=== PATIENT | male | born 1960 | race African-American/Black ===

== ENCOUNTER 2018-08-02 11:38 | Inpatient (IN) ==
[2018-08-02] MEDS ORDERED: SODIUM CHLORIDE 0.9% 1,000 ML IV SCH (12:30)
[2018-08-02 13:59] LABS: Basophils # 0.1 10*3/uL (0.0-0.2); Basophils % 0.7 % (0.0-0.8); Eosinophils # 0.2 10*3/uL (0.0-0.87); Eosinophils % 2.4 % (0.00-10.9); Hematocrit 37.3 VOL% (42.0-52.0); Hemoglobin 12.3 GM/DL (14.0-18.0); Immature Granulocytes % 0.1 %; Immature Granulocytes Absolute 0.01 #; Lymphocytes # 1.7 10*3/uL (1.4-4.0); Lymphocytes % 23.7 % (21.2-54.2); Mean Corpuscular Hemoglobin 28 PG (27-34); Mean Corpuscular Volume 84.8 FL (87-102); Mean Platelet Volume 10.2 FL (9.6-12.0); Monocytes # 0.9 10*3/uL (0.11-0.8); Monocytes % 13.2 % (1.7-12.7); Neutrophils # 4.2 10*3/uL (1.4-7.4); Neutrophils % 59.9 % (38.7-73.9); Platelet Count 220 T/CUMM (130-400); Red Cell Distribution Width 14.9 % (9.3-17.3)
[2018-08-02 14:26] LABS: Albumin 3.3 G/DL (3.4-5.0); Bilirubin,Total 0.5 MG/DL (0.2-1.0); Calcium 8.7 MG/DL (8.5-10.1); Osmolality,Calculated 279.5 MOS/KG (273-304); Potassium 3.9 MMOL/L (3.5-5.1); Total Protein 7.1 G/DL (6.4-8.3)
[2018-08-02] MEDS: CHLORHEXIDINE 4% SOLN 118 ML BOTTLE TOP SCH ×2 (16:00→22:09)
[2018-08-02] MEDS: METOPROLOL TARTRATE 100 MG TABLET PO SCH (22:09)
[2018-08-02] MEDS: CHLORHEXIDINE 0.12% ORAL RINSE 60 ML BOTTLE SWISH/SPIT SCH (22:09)
[2018-08-03] MEDS ORDERED: TISSUE ADHESIVE 1 EACH APPLICATOR TOP ONE (04:40)
[2018-08-03] MEDS ORDERED: VANCOMYCIN 1,000 MG VIAL ONE (04:40)
[2018-08-03] MEDS ORDERED: PAPAVERINE 60 MG/2 ML VIAL ONE (04:40)
[2018-08-03] MEDS ORDERED: CEFUROXIME INJ 1,500 MG in SYRINGE 1 EACH IV ONE (05:00)
[2018-08-03] MEDS: CHLORHEXIDINE 4% SOLN 118 ML BOTTLE TOP SCH ×2 (05:20→08:12)
[2018-08-03] MEDS: METOPROLOL TARTRATE 100 MG TABLET PO SCH (05:40)
[2018-08-03] MEDS ORDERED: PANTOPRAZOLE 40 MG TABLET PO ONE (06:30)
[2018-08-03] MEDS ORDERED: DIAZEPAM 5 MG TABLET PO ONE (06:30)
[2018-08-03] MEDS ORDERED: NITROPRUSSIDE 50 MG/2 ML VIAL ONE (07:00)
[2018-08-03] MEDS ORDERED: PHENYLEPHRINE DRIP 40 MG/250 ML PREMIX IV ONE (07:22)
[2018-08-03] MEDS ORDERED: SODIUM BICARBONATE 50 MEQ/50 ML SYRINGE IV ONE ×6 (07:22→13:07)
[2018-08-03] MEDS ORDERED: CALCIUM CHLORIDE 1,000 MG/10 ML SYRINGE IV ONE (07:22)
[2018-08-03] MEDS ORDERED: EPINEPHrine 1 MG/10 ML SYRINGE ONE (07:23)
[2018-08-03] MEDS ORDERED: POTASSIUM CHLORIDE RIDER 100 ML IV ONE (07:23)
[2018-08-03] MEDS ORDERED: ALBUMIN 5% 12.5 GM/250 ML VIAL IV ONE ×3 (07:23→12:12)
[2018-08-03 07:43] LABS: ABG Base Excess -0.7 MMOL/L (-2.5-2.5); ABG HCO3 23.8 MMOL/L (20-26); ABG PCO2 36.7 MM HG (35-48); ABG PH 7.413 (7.35-7.45); ABG TCO2 20.8 MMOL/L (23-27); Glucose Heart Surgery 88 MG/DL (74-106); Hemoglobin Heart Surgery 11.7 G/DL (14.0-18.0); Ionized Calcium Arterial 1.14 MMOL/L (1.21-1.46); PCO2 Patient Temp Arterial 36.7 MMHG; PH Patient Temp Arterial 7.413; Patient Temperature 37 CELCIUS; Potassium Heart/CVR 3.8 MMOL/L (3.5-5.1); Sodium Heart/CVR 136 MMOL/L (135-145)
[2018-08-03] MEDS: CHLORHEXIDINE 0.12% ORAL RINSE 60 ML BOTTLE SWISH/SPIT SCH ×2 (08:12→21:43)
[2018-08-03 08:58] LABS: Apearance,Urine CLEAR (Clear); Bilirubin,Urine Negative (Negative); Blood, Urine Negative (Negative); Glucose,Urine (UA) Negative (Negative); Ketones,Urine Negative (Negative); Nitrite,Urine Negative (Negative); Protein,Urine 30 MG/DL; RBC,Urine 1 /HPF (0-4); Transitional Epi Cells,Urine Occasional /HPF (<1); Urine Color Yellow (Yellow); Urine Specific Gravity 1.016 (1.001-1.035); WBC,Urine 9 /HPF (0-6)
[2018-08-03 09:06] LABS: Hematocrit Heart Surgery 42.1 PERCENT (42-52); Hemoglobin Heart Surgery 13.7 G/DL (14.0-18.0); PCO2 Patient Temp Venous 41.7 MM HG; PH Patient Temp Venous 7.292; PO2 Patient Temp Venous 50.4 MM HG; VBG Base Excess -6.4 MEQ/L (0-4); VBG Oxygen Saturation 83.8 %; VBG PH 7.264; VBG PO2 57.7 MMHG (17-40)
[2018-08-03 09:30] LABS: Hematocrit Heart Surgery 38.7 PERCENT (42-52); Hemoglobin Heart Surgery 12.6 G/DL (14.0-18.0); PCO2 Patient Temp Venous 34.3 MM HG; PH Patient Temp Venous 7.373; PO2 Patient Temp Venous 41.7 MM HG; Potassium Heart/CVR 3.7 MMOL/L (3.5-5.1); VBG Base Excess -4.8 MEQ/L (0-4); VBG HCO3 20.3 MEQ/L (24-28); VBG Oxygen Saturation 84.5 %; VBG PCO2 41.6 MMHG (41-51); VBG PH 7.316; VBG PO2 54.8 MMHG (17-40)
[2018-08-03] MEDS ORDERED: ALBUMIN 25% 25 GM/100 ML VIAL IV ONE (10:00)
[2018-08-03] MEDS ORDERED: MAGNESIUM SULFATE 10 GM/20 ML VIAL IV ONE (10:00)
[2018-08-03] MEDS ORDERED: PROTAMINE SULFATE 250 MG/25 ML VIAL IV ONE (10:00)
[2018-08-03] MEDS ORDERED: MANNITOL 12.5 GM/50 ML VIAL IV ONE (10:01)
[2018-08-03] MEDS ORDERED: HEPARIN 10,000 UNIT/10 ML VIAL ONE (10:01)
[2018-08-03] MEDS ORDERED: methylPREDNISolone SOD SUC 1,000 MG/8 ML VIAL ONE (10:01)
[2018-08-03] MEDS ORDERED: FUROSEMIDE 20 MG/2 ML VIAL ONE (10:01)
[2018-08-03] MEDS ORDERED: DEXTROSE 5% KCL 20 MEQ 20 MEQ/1,000 ML BAG IV ONE (10:01)
[2018-08-03] MEDS ORDERED: PROTAMINE SULFATE 50 MG/5 ML VIAL IV ONE (10:01)
[2018-08-03 10:17] LABS: ABG Base Excess -4.7 MMOL/L (-2.5-2.5); ABG HCO3 22.7 MMOL/L (20-26); ABG Oxygen Saturation 95.8 % (95-100); ABG PCO2 50.2 MM HG (35-48); ABG PH 7.273 (7.35-7.45); ABG PO2 92.2 MM HG (80-95); ABG TCO2 24.2 MMOL/L (23-27); Glucose Heart Surgery 148 MG/DL (74-106); Hemoglobin Heart Surgery 16.9 G/DL (14.0-18.0); Ionized Calcium Arterial 0.98 MMOL/L (1.21-1.46); PCO2 Patient Temp Arterial 50.2 MMHG; PH Patient Temp Arterial 7.273; PO2 Patient Temp Arterial 92.2 MM HG; Patient Temperature 37 CELCIUS; Potassium Heart/CVR 3.4 MMOL/L (3.5-5.1); Sodium Heart/CVR 135 MMOL/L (135-145)
[2018-08-03] MEDS ORDERED: ALBUTEROL 2.5 MG/3 ML NEB RESP TX ONE (10:27)
[2018-08-03 10:34] LABS: ABG Oxygen Saturation 96.9 % (95-100); ABG PCO2 57.9 MM HG (35-48); ABG PH 7.302 (7.35-7.45); ABG PO2 102.2 MM HG (80-95); ABG TCO2 29.8 MMOL/L (23-27); Glucose Heart Surgery 143 MG/DL (74-106); Hemoglobin Heart Surgery 17.6 G/DL (14.0-18.0); Ionized Calcium Arterial 1.08 MMOL/L (1.21-1.46); PCO2 Patient Temp Arterial 57.9 MMHG; PH Patient Temp Arterial 7.302; PO2 Patient Temp Arterial 102.2 MM HG; Patient Temperature 37 CELCIUS; Potassium Heart/CVR 3.3 MMOL/L (3.5-5.1); Sodium Heart/CVR 139 MMOL/L (135-145)
[2018-08-03] MEDS ORDERED: diphenhydrAMINE 50 MG/1 ML VIAL ONE (10:40)
[2018-08-03 10:55] LABS: ABG Base Excess -5.9 MMOL/L (-2.5-2.5); ABG HCO3 19.7 MMOL/L (20-26); ABG Oxygen Saturation 94.9 % (95-100); ABG PCO2 65.7 MM HG (35-48); ABG PO2 96.5 MM HG (80-95); ABG TCO2 21.6 MMOL/L (23-27); Glucose Heart Surgery 147 MG/DL (74-106); Hematocrit Heart Surgery 54.2 PERCENT (42-52); Hemoglobin Heart Surgery 17.7 G/DL (14.0-18.0); Ionized Calcium Arterial 1.08 MMOL/L (1.21-1.46); PCO2 Patient Temp Arterial 65.7 MMHG; PH Patient Temp Arterial 7.192; PO2 Patient Temp Arterial 96.5 MM HG; Patient Temperature 37 CELCIUS; Potassium Heart/CVR 3.2 MMOL/L (3.5-5.1); Sodium Heart/CVR 139 MMOL/L (135-145)
[2018-08-03 11:02] LABS: ABG PH 7.192 (7.35-7.45)
[2018-08-03] MEDS ORDERED: EPINEPHrine 1 MG/ML VIAL ONE (11:12)
[2018-08-03] MEDS ORDERED: CALCIUM CHLORIDE 1,000 MG/10 ML SYRINGE IV PRN (11:52)
[2018-08-03] MEDS ORDERED: ONDANSETRON 4 MG/2 ML VIAL IV PRN (11:52)
[2018-08-03] MEDS ORDERED: ACETAMINOPHEN 650 MG SUPP RECTAL PRN (11:52)
[2018-08-03] MEDS ORDERED: INSULIN REGULAR 100 UNIT/ML IV PRN (11:52)
[2018-08-03] MEDS ORDERED: DEXTROSE 50% 25 GM/50 ML SYRINGE IV PRN ×2 (11:52)
[2018-08-03] MEDS ORDERED: MIDAZOLAM 2 MG/2 ML VIAL IV PRN (11:52)
[2018-08-03] MEDS ORDERED: POTASSIUM CHLORIDE RIDER 10 MEQ in PREMIX 1 EACH IV PRN (11:52)
[2018-08-03] MEDS ORDERED: MAGNESIUM SULF RIDER 2 GM in PREMIX 1 EACH IV PRN (11:52)
[2018-08-03] MEDS ORDERED: SODIUM CHLORIDE 0.9% 250 ML IV PRN (11:52)
[2018-08-03] MEDS ORDERED: MAGNESIUM SULF RIDER 4 GM in PREMIX 1 EACH IV PRN (11:52)
[2018-08-03] MEDS ORDERED: CHLORHEXIDINE 4% SOLN 118 ML BOTTLE TOP PRN (11:52)
[2018-08-03] MEDS ORDERED: SODIUM BICARB INJ 150 MEQ in STERILE WATER INJ 1,000 ML IV SCH (12:00)
[2018-08-03] MEDS ORDERED: SODIUM CHLORIDE 0.45% 1,000 ML IV SCH ×2 (12:00)
[2018-08-03] MEDS ORDERED: PHENYLEPHRINE DRIP 40 MG/250 ML PREMIX IV PRN (12:04)
[2018-08-03] MEDS ORDERED: MIDAZOLAM 10 MG/2 ML VIAL ONE (12:09)
[2018-08-03] MEDS ORDERED: SUFentanil 250 MCG/5 ML AMP ONE (12:09)
[2018-08-03] MEDS ORDERED: ETOMIDATE 40 MG/20 ML VIAL IV ONE (12:10)
[2018-08-03] MEDS ORDERED: PHENYLEPHRINE 10 MG/1 ML VIAL IV ONE (12:10)
[2018-08-03] MEDS ORDERED: SODIUM CHLORIDE 0.9% 750 ML IV ONE (12:10)
[2018-08-03] MEDS ORDERED: SODIUM CHLORIDE 0.9% 1,000 ML IV ONE (12:10)
[2018-08-03] MEDS ORDERED: HEPARIN/NACL 0.9% 2 UNITS/ML 500 ML IV ONE (12:11)
[2018-08-03] MEDS ORDERED: AMIODARONE 150 MG/3 ML VIAL ONE (12:11)
[2018-08-03] MEDS ORDERED: CALCIUM CHLORIDE 1,000 MG/10 ML VIAL IV ONE (12:11)
[2018-08-03] MEDS ORDERED: NITROGLYCERIN DRIP 50 MG/250 ML BOTTLE IV ONE (12:12)
[2018-08-03] MEDS ORDERED: AMINOCAPROIC ACID 5,000 MG/20 ML VIAL IV ONE (12:12)
[2018-08-03] MEDS ORDERED: NOREPINEPHRINE 4 MG/4 ML VIAL IV ONE (12:30)
[2018-08-03 12:40] LABS: Basophils # 0.1 10*3/uL (0.0-0.2); Basophils % 0.2 % (0.0-0.8); Eosinophils # 0.1 10*3/uL (0.0-0.87); Eosinophils % 0.4 % (0.00-10.9); Hematocrit 47.3 VOL% (42.0-52.0); Immature Granulocytes % 4.5 %; Immature Granulocytes Absolute 1.31 #; Lymphocytes # 3.9 10*3/uL (1.4-4.0); Lymphocytes % 13.5 % (21.2-54.2); Mean Corpuscular HGB Conc 32.3 GM/DL (32-36); Mean Corpuscular Hemoglobin 28 PG (27-34); Mean Corpuscular Volume 86.9 FL (87-102); Mean Platelet Volume 10.5 FL (9.6-12.0); Monocytes # 1.1 10*3/uL (0.11-0.8); Monocytes % 3.9 % (1.7-12.7); Neutrophils # 22.6 10*3/uL (1.4-7.4); Neutrophils % 77.5 % (38.7-73.9); Red Cell Distribution Width 14.9 % (9.3-17.3)
[2018-08-03 12:43] LABS: ABG Base Excess -1.3 MMOL/L (-2.5-2.5); ABG HCO3 23.2 MMOL/L (20-26); ABG Oxygen Saturation 93.5 % (95-100); ABG PH 7.211 (7.35-7.45); ABG PO2 84.8 MM HG (80-95); ABG TCO2 26.2 MMOL/L (23-27); Glucose Heart Surgery 114 MG/DL (74-106); Hematocrit Heart Surgery 48.9 PERCENT (42-52); Potassium Heart/CVR 3.3 MMOL/L (3.5-5.1)
[2018-08-03 12:46] LABS: Hemoglobin 15.3 GM/DL (14.0-18.0); Red Blood Count 5.44 MC/CUMM (3.8-5.5); White Blood Count 29.2 T/CUMM (4-12)
[2018-08-03 12:47] LABS: ABG PCO2 75.1 MM HG (35-48); Platelet Count 222 T/CUMM (130-400)
[2018-08-03] MEDS: ALBUMIN 5% 12.5 GM in PREMIX 1 EACH IV PRN ×2 (13:02→13:18)
[2018-08-03 13:04] LABS: Calcium 7.2 MG/DL (8.5-10.1); Osmolality,Calculated 296.3 MOS/KG (273-304); Potassium 3.4 MMOL/L (3.5-5.1)
[2018-08-03 13:15] LABS: Band Neutrophils 6 % (0-10); Eosinophils 2 % (0-10); Lymphocytes 14 % (20-55); Metamyelocytes 1 %; Myelocytes 1 %; Platelet Estimate Adequate; Segmented Neutrophils 71 % (50-85); Total Cells Counted 100
[2018-08-03] MEDS: NOREPINEPHRINE 8 MG in SODIUM CHLORIDE 0.9% 242 ML IV PRN ×2 (13:17→21:56)
[2018-08-03 13:30] LABS: ABG Base Excess 0.6 MMOL/L (-2.5-2.5); ABG HCO3 24.9 MMOL/L (20-26); ABG Oxygen Saturation 95.8 % (95-100); ABG PCO2 55.3 MM HG (35-48); ABG PH 7.317 (7.35-7.45); ABG PO2 87.5 MM HG (80-95); ABG TCO2 24.4 MMOL/L (23-27); Glucose Heart Surgery 107 MG/DL (74-106); Hematocrit Heart Surgery 46.4 PERCENT (42-52); Hemoglobin Heart Surgery 15.1 G/DL (14.0-18.0); Potassium Heart/CVR 3.4 MMOL/L (3.5-5.1)
[2018-08-03 13:34] LABS: Lactic Acid 6.5 MMOL/L (0.4-2.0)
[2018-08-03] MEDS: POTASSIUM CHLORIDE RIDER 20 MEQ in PREMIX 1 EACH IV PRN ×2 (13:55→14:21)
[2018-08-03] MEDS: DEXMEDETOMIDINE 200 MCG in SODIUM CHLORIDE 0.9% 48 ML IV PRN ×2 (14:55→21:41)
[2018-08-03 15:06] LABS: ABG Base Excess 1.7 MMOL/L (-2.5-2.5); ABG HCO3 25.6 MMOL/L (20-26); ABG Oxygen Saturation 89.1 % (95-100); ABG PCO2 47.8 MM HG (35-48); ABG PH 7.372 (7.35-7.45); ABG PO2 59.4 MM HG (80-95); ABG TCO2 23.9 MMOL/L (23-27); Glucose Heart Surgery 110 MG/DL (74-106); Hematocrit Heart Surgery 44.8 PERCENT (42-52); Hemoglobin Heart Surgery 14.6 G/DL (14.0-18.0); Potassium Heart/CVR 3.7 MMOL/L (3.5-5.1)
[2018-08-03] MEDS: ALBUTEROL/IPRATROPIUM 3 ML NEB RESP TX SCH ×2 (15:28→20:40)
[2018-08-03 15:45] LABS: INR 1.8; PT Patient Result 19.4 SECS
[2018-08-03 16:01] LABS: Partial Thromboplastin Time > 320.0 SECS (0-40)
[2018-08-03 16:29] LABS: ABG Base Excess 2.2 MMOL/L (-2.5-2.5); ABG HCO3 26.2 MMOL/L (20-26); ABG Oxygen Saturation 91.8 % (95-100); ABG PCO2 40.4 MM HG (35-48); ABG PH 7.427 (7.35-7.45); ABG PO2 62.6 MM HG (80-95); ABG TCO2 22.7 MMOL/L (23-27); Glucose Heart Surgery 122 MG/DL (74-106); Hematocrit Heart Surgery 44.8 PERCENT (42-52); Hemoglobin Heart Surgery 14.6 G/DL (14.0-18.0); Potassium Heart/CVR 3.7 MMOL/L (3.5-5.1)
[2018-08-03] MEDS ORDERED: CALCIUM GLUCONATE 1,000 MG in SODIUM CHLORIDE 0.9% 100 ML IV ONE (16:30)
[2018-08-03 17:06] LABS: Lactic Acid 8.2 MMOL/L (0.4-2.0)
[2018-08-03 17:42] LABS: Albumin 2.9 G/DL (3.4-5.0); Calcium 7.5 MG/DL (8.5-10.1); Osmolality,Calculated 294.6 MOS/KG (273-304); Total Protein 4.6 G/DL (6.4-8.3)
[2018-08-03] MEDS: SODIUM BICARB INJ 50 MEQ in SODIUM CHLORIDE 0.45% 1,000 ML IV SCH (17:57)
[2018-08-03] MEDS ORDERED: FUROSEMIDE 100 MG/10 ML VIAL IV ONE (18:00)
[2018-08-03 21:11] LABS: ABG Base Excess 2.1 MMOL/L (-2.5-2.5); ABG HCO3 26.3 MMOL/L (20-26); ABG PCO2 39.7 MM HG (35-48); ABG PH 7.439 (7.35-7.45); ABG PO2 91.4 MM HG (80-95); ABG TCO2 27.5 MMOL/L (23-27); Glucose Heart Surgery 137 MG/DL (74-106); Hemoglobin Heart Surgery 15.7 G/DL (14.0-18.0); Potassium Heart/CVR 4.1 MMOL/L (3.5-5.1)
[2018-08-03] MEDS: CEFUROXIME INJ 1,500 MG in SYRINGE 1 EACH IV SCH (21:32)
[2018-08-03 23:18] LABS: Lactic Acid 4.8 MMOL/L (0.4-2.0)
[2018-08-04] MEDS ORDERED: DOBUTamine 500 MG/250 ML PREMIX IV PRN (02:01)
[2018-08-04] MEDS ORDERED: DOBUTamine 500 MG/250 ML PREMIX IV ONE (02:06)
[2018-08-04] MEDS: SODIUM BICARB INJ 50 MEQ in SODIUM CHLORIDE 0.45% 1,000 ML IV SCH ×2 (02:35→14:10)
[2018-08-04] MEDS: DEXMEDETOMIDINE 200 MCG in SODIUM CHLORIDE 0.9% 48 ML IV PRN ×2 (02:37→07:31)
[2018-08-04] MEDS: ALBUTEROL/IPRATROPIUM 3 ML NEB RESP TX SCH ×7 (04:06→22:32)
[2018-08-04] MEDS: ALBUMIN 5% 12.5 GM in PREMIX 1 EACH IV PRN ×4 (04:06→11:28)
[2018-08-04 04:33] LABS: ABG Base Excess 1.5 MMOL/L (-2.5-2.5); ABG HCO3 25.6 MMOL/L (20-26); ABG PCO2 38.8 MM HG (35-48); ABG PH 7.438 (7.35-7.45); ABG PO2 94.4 MM HG (80-95); ABG TCO2 26.8 MMOL/L (23-27); Glucose Heart Surgery 163 MG/DL (74-106); Hemoglobin Heart Surgery 14.1 G/DL (14.0-18.0); Potassium Heart/CVR 4.7 MMOL/L (3.5-5.1)
[2018-08-04 04:42] LABS: Basophils # 0.1 10*3/uL (0.0-0.2); Basophils % 0.2 % (0.0-0.8); Hematocrit 39.6 VOL% (42.0-52.0); Immature Granulocytes % 3.2 %; Immature Granulocytes Absolute 1.02 #; Lymphocytes # 1.4 10*3/uL (1.4-4.0); Lymphocytes % 4.4 % (21.2-54.2); Mean Corpuscular HGB Conc 33.6 GM/DL (32-36); Mean Corpuscular Hemoglobin 28 PG (27-34); Mean Corpuscular Volume 84.1 FL (87-102); Mean Platelet Volume 11.2 FL (9.6-12.0); Monocytes # 1.5 10*3/uL (0.11-0.8); Monocytes % 4.6 % (1.7-12.7); Neutrophils # 27.9 10*3/uL (1.4-7.4); Neutrophils % 87.6 % (38.7-73.9); Red Blood Count 4.71 MC/CUMM (3.8-5.5); Red Cell Distribution Width 14.9 % (9.3-17.3); White Blood Count 31.9 T/CUMM (4-12)
[2018-08-04 04:58] LABS: Hemoglobin 13.3 GM/DL (14.0-18.0); Platelet Count 148 T/CUMM (130-400)
[2018-08-04 05:04] LABS: INR 1.3; PT Patient Result 13.9 SECS; Partial Thromboplastin Time 29.2 SECS (0-40)
[2018-08-04 05:09] LABS: Calcium 7.1 MG/DL (8.5-10.1); Osmolality,Calculated 297.8 MOS/KG (273-304); Potassium 4.8 MMOL/L (3.5-5.1)
[2018-08-04 05:15] LABS: Band Neutrophils 5 % (0-10); Hypochromasia Slight; Lymphocytes 5 % (20-55); Platelet Estimate Adequate; Segmented Neutrophils 88 % (50-85); Total Cells Counted 100
[2018-08-04] MEDS ORDERED: FUROSEMIDE 100 MG/10 ML VIAL IV ONE (06:00)
[2018-08-04] MEDS: INSULIN REGULAR 100 UNIT/ML SUBCUT SCH ×5 (07:34→21:36)
[2018-08-04] MEDS ORDERED: ASPIRIN EC 325 MG TABLET PO SCH (09:00)
[2018-08-04] MEDS: CEFUROXIME INJ 1,500 MG in SYRINGE 1 EACH IV SCH ×2 (09:23→19:50)
[2018-08-04] MEDS: PANTOPRAZOLE 40 MG VIAL IV SCH (09:23)
[2018-08-04] MEDS: FUROSEMIDE 40 MG TABLET PO SCH (09:23)
[2018-08-04] MEDS: ASPIRIN 325 MG TABLET PO SCH (09:23)
[2018-08-04] MEDS: CHLORHEXIDINE 0.12% ORAL RINSE 60 ML BOTTLE SWISH/SPIT SCH ×2 (09:28→21:01)
[2018-08-04] MEDS ORDERED: ALBUMIN 25% 25 GM/100 ML VIAL IV ONE (09:54)
[2018-08-04] MEDS ORDERED: SODIUM BICARBONATE 50 MEQ/50 ML SYRINGE IV ONE (09:54)
[2018-08-04] MEDS ORDERED: MANNITOL 12.5 GM/50 ML VIAL IV ONE (09:54)
[2018-08-04 11:47] LABS: ABG Base Excess 2.1 MMOL/L (-2.5-2.5); ABG HCO3 26.3 MMOL/L (20-26); ABG Oxygen Saturation 96.5 % (95-100); ABG PCO2 43.7 MM HG (35-48); ABG PH 7.402 (7.35-7.45); ABG PO2 86.5 MM HG (80-95); ABG TCO2 24.5 MMOL/L (23-27); Glucose Heart Surgery 139 MG/DL (74-106); Hematocrit Heart Surgery 33.1 PERCENT (42-52); Hemoglobin Heart Surgery 10.7 G/DL (14.0-18.0); Potassium Heart/CVR 4.3 MMOL/L (3.5-5.1)
[2018-08-04] MEDS ORDERED: CALCIUM GLUCONATE 1,000 MG in SODIUM CHLORIDE 0.9% 100 ML IV ONE (13:00)
[2018-08-04] MEDS: MORPHINE 4 MG/1 ML VIAL IV PRN ×2 (13:58→19:53)
[2018-08-04] MEDS ORDERED: FUROSEMIDE 40 MG/4 ML VIAL IV ONE (14:00)
[2018-08-04] MEDS: MORPHINE 10 MG/1 ML VIAL IV PRN (15:31)
[2018-08-04] MEDS: ATORVASTATIN 40 MG TABLET PO SCH (21:00)
[2018-08-05] MEDS: INSULIN REGULAR 100 UNIT/ML SUBCUT SCH ×4 (01:58→21:00)
[2018-08-05] MEDS: ALBUTEROL/IPRATROPIUM 3 ML NEB RESP TX SCH ×6 (02:31→22:38)
[2018-08-05] MEDS: MORPHINE 4 MG/1 ML VIAL IV PRN ×2 (02:37→10:53)
[2018-08-05 04:38] LABS: Basophils % 0.1 % (0.0-0.8); Hematocrit 28.3 VOL% (42.0-52.0); Hemoglobin 9.4 GM/DL (14.0-18.0); Immature Granulocytes % 3.3 %; Lymphocytes # 0.7 10*3/uL (1.4-4.0); Lymphocytes % 2.5 % (21.2-54.2); Mean Corpuscular HGB Conc 33.2 GM/DL (32-36); Mean Corpuscular Hemoglobin 29 PG (27-34); Mean Corpuscular Volume 85.8 FL (87-102); Mean Platelet Volume 10.9 FL (9.6-12.0); Monocytes # 1.5 10*3/uL (0.11-0.8); Monocytes % 5.6 % (1.7-12.7); Neutrophils # 24.3 10*3/uL (1.4-7.4); Neutrophils % 88.5 % (38.7-73.9); White Blood Count 27.4 T/CUMM (4-12)
[2018-08-05 04:42] LABS: Calcium 7.2 MG/DL (8.5-10.1); Osmolality,Calculated 291.5 MOS/KG (273-304); Potassium 4.3 MMOL/L (3.5-5.1)
[2018-08-05 04:46] LABS: Platelet Count 95 T/CUMM (130-400)
[2018-08-05 05:34] LABS: Band Neutrophils 4 % (0-10); Hypochromasia 1+; Lymphocytes 2 % (20-55); Ovalocytes Slight; Platelet Estimate Decreased; Segmented Neutrophils 90 % (50-85); Total Cells Counted 100
[2018-08-05] MEDS: ASPIRIN 325 MG TABLET PO SCH (09:01)
[2018-08-05] MEDS: FUROSEMIDE 40 MG TABLET PO SCH (09:01)
[2018-08-05] MEDS: PANTOPRAZOLE 40 MG VIAL IV SCH (09:02)
[2018-08-05] MEDS: CHLORHEXIDINE 0.12% ORAL RINSE 60 ML BOTTLE SWISH/SPIT SCH (09:02)
[2018-08-05] MEDS ORDERED: FUROSEMIDE 40 MG/4 ML VIAL IV ONE (09:11)
[2018-08-05] MEDS: CARVEDILOL 3.125 MG TABLET PO SCH ×2 (11:23→21:28)
[2018-08-05] MEDS ORDERED: ATORVASTATIN 40 MG TABLET PO SCH (21:00)
[2018-08-05] MEDS: ATORVASTATIN 40 MG TABLET PO SCH (21:28)
[2018-08-06] MEDS: INSULIN REGULAR 100 UNIT/ML SUBCUT SCH ×8 (02:00→21:05)
[2018-08-06] MEDS: ALBUTEROL/IPRATROPIUM 3 ML NEB RESP TX SCH ×6 (02:12→23:09)
[2018-08-06 04:46] LABS: Basophils % 0.1 % (0.0-0.8); Hematocrit 25.3 VOL% (42.0-52.0); Hemoglobin 8.4 GM/DL (14.0-18.0); Immature Granulocytes % 2.4 %; Immature Granulocytes Absolute 0.44 #; Lymphocytes # 0.6 10*3/uL (1.4-4.0); Lymphocytes % 3.1 % (21.2-54.2); Mean Corpuscular HGB Conc 33.2 GM/DL (32-36); Mean Corpuscular Hemoglobin 28 PG (27-34); Mean Corpuscular Volume 85.5 FL (87-102); Mean Platelet Volume 11.9 FL (9.6-12.0); Monocytes % 5.5 % (1.7-12.7); Neutrophils # 16.2 10*3/uL (1.4-7.4); Neutrophils % 88.9 % (38.7-73.9); Red Blood Count 2.96 MC/CUMM (3.8-5.5); Red Cell Distribution Width 14.8 % (9.3-17.3)
[2018-08-06 05:01] LABS: Calcium 7.5 MG/DL (8.5-10.1); Osmolality,Calculated 290.8 MOS/KG (273-304); Potassium 4.1 MMOL/L (3.5-5.1)
[2018-08-06 05:11] LABS: Platelet Count 77 T/CUMM (130-400); White Blood Count 18.2 T/CUMM (4-12)
[2018-08-06 05:45] LABS: Band Neutrophils 3 % (0-10); Lymphocytes 5 % (20-55); Segmented Neutrophils 86 % (50-85); Total Cells Counted 100
[2018-08-06 05:46] LABS: Hypochromasia 3+; Platelet Estimate Decreased
[2018-08-06] MEDS ORDERED: hydrALAZINE 20 MG/1 ML VIAL IV ONE ×3 (06:00→19:55)
[2018-08-06] MEDS: ASPIRIN 325 MG TABLET PO SCH (08:52)
[2018-08-06] MEDS: FERROUS SULFATE 325 MG TABLET PO SCH (08:52)
[2018-08-06] MEDS: PANTOPRAZOLE 40 MG VIAL IV SCH (08:53)
[2018-08-06] MEDS: CARVEDILOL 3.125 MG TABLET PO SCH (08:53)
[2018-08-06] MEDS ORDERED: hydrALAZINE 25 MG TABLET PO SCH (09:00)
[2018-08-06] MEDS ORDERED: SODIUM CHLORIDE 0.9% 1,000 ML IV PRN (14:27)
[2018-08-06] MEDS: FUROSEMIDE 40 MG TABLET PO SCH (14:28)
[2018-08-06] MEDS: CARVEDILOL 6.25 MG TABLET PO SCH (21:02)
[2018-08-06] MEDS: ATORVASTATIN 40 MG TABLET PO SCH (21:02)
[2018-08-06] MEDS: MORPHINE 4 MG/1 ML VIAL IV PRN (21:02)
[2018-08-06 23:40] LABS: Hematocrit 28.4 VOL% (42.0-52.0); Hemoglobin 9.3 GM/DL (14.0-18.0)
[2018-08-07] MEDS: ALBUTEROL/IPRATROPIUM 3 ML NEB RESP TX SCH ×6 (02:41→19:38)
[2018-08-07] MEDS: INSULIN REGULAR 100 UNIT/ML SUBCUT SCH ×6 (03:02→20:56)
[2018-08-07 06:28] LABS: Basophils % 0.1 % (0.0-0.8); Hematocrit 27.9 VOL% (42.0-52.0); Hemoglobin 9.1 GM/DL (14.0-18.0); Immature Granulocytes Absolute 0.17 #; Lymphocytes # 0.6 10*3/uL (1.4-4.0); Lymphocytes % 3.8 % (21.2-54.2); Mean Corpuscular HGB Conc 32.6 GM/DL (32-36); Mean Corpuscular Hemoglobin 28 PG (27-34); Mean Corpuscular Volume 86.4 FL (87-102); Mean Platelet Volume 12.4 FL (9.6-12.0); Monocytes # 0.9 10*3/uL (0.11-0.8); Monocytes % 5.6 % (1.7-12.7); Neutrophils # 14.8 10*3/uL (1.4-7.4); Neutrophils % 89.5 % (38.7-73.9); Platelet Count 92 T/CUMM (130-400); Red Blood Count 3.23 MC/CUMM (3.8-5.5); White Blood Count 16.5 T/CUMM (4-12)
[2018-08-07] MEDS: ASPIRIN 325 MG TABLET PO SCH (08:23)
[2018-08-07] MEDS: CARVEDILOL 6.25 MG TABLET PO SCH ×2 (08:23→16:51)
[2018-08-07] MEDS: PANTOPRAZOLE 40 MG VIAL IV SCH (08:23)
[2018-08-07] MEDS: FERROUS SULFATE 325 MG TABLET PO SCH (08:23)
[2018-08-07 10:01] LABS: Lymphocytes 2 % (20-55); Platelet Estimate Decreased; Polychromasia Slight; Segmented Neutrophils 94 % (50-85); Total Cells Counted 100
[2018-08-07 10:23] LABS: Calcium 8.1 MG/DL (8.5-10.1); Osmolality,Calculated 296.8 MOS/KG (273-304); Potassium 3.9 MMOL/L (3.5-5.1)
[2018-08-07] MEDS: FUROSEMIDE 40 MG TABLET PO SCH (10:47)
[2018-08-07] MEDS: ATORVASTATIN 40 MG TABLET PO SCH (20:55)
[2018-08-07] MEDS: CHLORHEXIDINE 0.12% ORAL RINSE 60 ML BOTTLE SWISH/SPIT SCH (20:56)
[2018-08-07] MEDS: MORPHINE 10 MG/1 ML VIAL IV PRN (22:24)
[2018-08-08] MEDS: ALBUTEROL/IPRATROPIUM 3 ML NEB RESP TX SCH ×6 (00:20→19:12)
[2018-08-08] MEDS: INSULIN REGULAR 100 UNIT/ML SUBCUT SCH ×6 (00:45→21:33)
[2018-08-08] MEDS ORDERED: hydrALAZINE 20 MG/1 ML VIAL IV ONE (01:00)
[2018-08-08] MEDS ORDERED: LABETALOL 20 MG/4 ML SYRINGE IV ONE (01:30)
[2018-08-08] MEDS: PANTOPRAZOLE 40 MG VIAL IV SCH (08:21)
[2018-08-08] MEDS: FUROSEMIDE 40 MG TABLET PO SCH (08:21)
[2018-08-08] MEDS: CARVEDILOL 6.25 MG TABLET PO SCH (08:21)
[2018-08-08] MEDS: ASPIRIN 325 MG TABLET PO SCH (08:21)
[2018-08-08] MEDS: CHLORHEXIDINE 0.12% ORAL RINSE 60 ML BOTTLE SWISH/SPIT SCH ×2 (08:21→22:13)
[2018-08-08] MEDS: FERROUS SULFATE 325 MG TABLET PO SCH (08:21)
[2018-08-08 09:05] LABS: Calcium 8.3 MG/DL (8.5-10.1); Osmolality,Calculated 296.5 MOS/KG (273-304); Potassium 3.9 MMOL/L (3.5-5.1)
[2018-08-08] MEDS ORDERED: hydrALAZINE 20 MG/1 ML VIAL IV PRN (13:00)
[2018-08-08] MEDS: hydrALAZINE 20 MG/1 ML VIAL IV PRN ×2 (13:01→16:54)
[2018-08-08] MEDS: CARVEDILOL 12.5 MG TABLET PO SCH (16:54)
[2018-08-08] MEDS: ATORVASTATIN 40 MG TABLET PO SCH (22:12)
[2018-08-09] MEDS: ALBUTEROL/IPRATROPIUM 3 ML NEB RESP TX SCH ×7 (00:52→23:45)
[2018-08-09] MEDS: MORPHINE 4 MG/1 ML VIAL IV PRN ×2 (03:43→15:25)
[2018-08-09] MEDS: INSULIN REGULAR 100 UNIT/ML SUBCUT SCH ×5 (05:25→20:34)
[2018-08-09 06:15] LABS: Calcium 8.1 MG/DL (8.5-10.1); Osmolality,Calculated 298.4 MOS/KG (273-304); Potassium 3.8 MMOL/L (3.5-5.1)
[2018-08-09] MEDS: FUROSEMIDE 40 MG TABLET PO SCH (10:55)
[2018-08-09] MEDS: CARVEDILOL 12.5 MG TABLET PO SCH (10:55)
[2018-08-09] MEDS: FERROUS SULFATE 325 MG TABLET PO SCH (10:56)
[2018-08-09] MEDS: ASPIRIN 325 MG TABLET PO SCH (10:56)
[2018-08-09] MEDS: PANTOPRAZOLE 40 MG VIAL IV SCH (10:59)
[2018-08-09] MEDS: CHLORHEXIDINE 0.12% ORAL RINSE 60 ML BOTTLE SWISH/SPIT SCH ×2 (11:05→21:21)
[2018-08-09] MEDS: MORPHINE 10 MG/1 ML VIAL IV PRN (21:16)
[2018-08-09] MEDS: ATORVASTATIN 40 MG TABLET PO SCH (21:18)
[2018-08-09] MEDS: CARVEDILOL 25 MG TABLET PO SCH (21:20)
[2018-08-10] MEDS: hydrALAZINE 20 MG/1 ML VIAL IV PRN (00:05)
[2018-08-10] MEDS: INSULIN REGULAR 100 UNIT/ML SUBCUT SCH ×5 (00:14→16:07)
[2018-08-10] MEDS: ALBUTEROL/IPRATROPIUM 3 ML NEB RESP TX SCH ×4 (04:07→13:40)
[2018-08-10 05:24] LABS: Calcium 8.8 MG/DL (8.5-10.1); Osmolality,Calculated 294.5 MOS/KG (273-304)
[2018-08-10] MEDS: PANTOPRAZOLE 40 MG VIAL IV SCH (08:54)
[2018-08-10] MEDS: CARVEDILOL 25 MG TABLET PO SCH (08:54)
[2018-08-10] MEDS: FUROSEMIDE 40 MG TABLET PO SCH (08:54)
[2018-08-10] MEDS: FERROUS SULFATE 325 MG TABLET PO SCH (08:54)
[2018-08-10] MEDS: ASPIRIN 325 MG TABLET PO SCH (08:54)
[2018-08-10] MEDS: CHLORHEXIDINE 0.12% ORAL RINSE 60 ML BOTTLE SWISH/SPIT SCH (08:55)
[2018-08-10 17:51] VITALS: BP 167/97
== END 2018-08-10 17:15 | disposition swing bed (61) | DRG 166 ==
LOC: N.2W 11:38 → N.TELEN 15:21 → N.CVR 08-03 07:49 → N.ICU 08-04 18:18 → N.TELES 08-05 11:52
PROVIDERS: ADMIT Thoracic Surgery (Cardiothoracic Vascular Surgery); ATTEND Thoracic Surgery (Cardiothoracic Vascular Surgery)

== ENCOUNTER 2018-08-10 19:40 | Observation (INO) ==
[2018-08-10] MEDS ORDERED: NITROGLYCERIN 2% OINT 1 INCH/GM PACK TOP STA (20:10)
[2018-08-10] MEDS ORDERED: ASPIRIN 325 MG TABLET PO STA (20:10)
[2018-08-10] MEDS ORDERED: ONDANSETRON 4 MG/2 ML VIAL IV STA (20:10)
[2018-08-10 20:52] LABS: Basophils % 0.1 % (0.0-0.8); Eosinophils # 0.1 10*3/uL (0.0-0.87); Eosinophils % 0.6 % (0.00-10.9); Hematocrit 31.3 VOL% (42.0-52.0); Hemoglobin 10.1 GM/DL (14.0-18.0); Immature Granulocytes % 1.4 %; Immature Granulocytes Absolute 0.25 #; Lymphocytes % 5.7 % (21.2-54.2); Mean Corpuscular HGB Conc 32.3 GM/DL (32-36); Mean Corpuscular Hemoglobin 28 PG (27-34); Mean Corpuscular Volume 86.5 FL (87-102); Mean Platelet Volume 11.6 FL (9.6-12.0); Monocytes # 2.3 10*3/uL (0.11-0.8); Monocytes % 12.5 % (1.7-12.7); Neutrophils # 14.5 10*3/uL (1.4-7.4); Neutrophils % 79.7 % (38.7-73.9); Platelet Count 246 T/CUMM (130-400); Red Blood Count 3.62 MC/CUMM (3.8-5.5); Red Cell Distribution Width 14.4 % (9.3-17.3); White Blood Count 18.2 T/CUMM (4-12)
[2018-08-10 21:08] LABS: INR 1.1; PT Patient Result 11.5 SECS; Partial Thromboplastin Time 25.7 SECS (0-40)
[2018-08-10 21:13] LABS: Alanine Aminotransferase 63 U/L (16-61); Albumin 3.5 G/DL (3.4-5.0); Alkaline Phosphatase 51 U/L (45-117); Aspartate Amino Transferase 62 U/L (0-37); Blood Urea Nitrogen 59 MG/DL (7-18); Calcium 8.6 MG/DL (8.5-10.1); Glucose 97 MG/DL (74-106); Osmolality,Calculated 289.8 MOS/KG (273-304); Potassium 4.7 MMOL/L (3.5-5.1); Sodium 137 MMOL/L (136-145); Total Protein 8.5 G/DL (6.4-8.3)
[2018-08-10 21:38] LABS: Apearance,Urine CLEAR (Clear); Bilirubin,Urine Negative (Negative); Blood, Urine Small mg/dL (Negative); Glucose,Urine (UA) 50 mg/dL (Negative); Ketones,Urine Negative (Negative); Nitrite,Urine Negative (Negative); Protein,Urine 30 MG/DL; RBC,Urine <1 /HPF (0-4); Urine Color Yellow (Yellow); Urine Urobilinogen < 2.0 EU/DL (0.2-1.0); WBC,Urine 6 /HPF (0-6)
[2018-08-10 21:42] LABS: Barbiturates Screen,Urine Negative (Negative); Benzodiazepines Screen,Urine Positive (Negative); Cannabinoid Screen,Urine Negative (Negative); Opiate Screen,Urine Positive (Negative); Phencyclidine Screen,Urine Negative (Negative)
[2018-08-10] MEDS ORDERED: ALBUTEROL/IPRATROPIUM 3 ML NEB RESP TX PRN (21:59)
[2018-08-10] MEDS ORDERED: ACETAMINOPHEN 500 MG TABLET PO PRN (21:59)
[2018-08-10] MEDS ORDERED: ONDANSETRON 4 MG/2 ML VIAL IV PRN (21:59)
[2018-08-10] MEDS ORDERED: hydrALAZINE 20 MG/1 ML VIAL ONE (22:09)
[2018-08-11 05:30] LABS: Blood Urea Nitrogen 65 MG/DL (7-18); Calcium 8.2 MG/DL (8.5-10.1); Glucose 94 MG/DL (74-106); Sodium 143 MMOL/L (136-145)
[2018-08-11] MEDS ORDERED: FUROSEMIDE 40 MG/4 ML VIAL IV ONE (06:52)
[2018-08-11] MEDS: ALBUTEROL/IPRATROPIUM 3 ML NEB RESP TX SCH ×5 (07:53→23:27)
[2018-08-11] MEDS: NITROGLYCERIN 2% OINT 1 INCH/GM PACK TOP SCH ×2 (09:05→21:02)
[2018-08-11] MEDS: METOPROLOL TARTRATE 100 MG TABLET PO SCH ×2 (09:05→21:02)
[2018-08-11] MEDS: PANTOPRAZOLE 40 MG TABLET PO SCH (09:05)
[2018-08-11] MEDS: ATORVASTATIN 40 MG TABLET PO SCH (21:02)
[2018-08-12] MEDS: ALBUTEROL/IPRATROPIUM 3 ML NEB RESP TX SCH ×6 (02:58→23:58)
[2018-08-12] MEDS: METOPROLOL TARTRATE 100 MG TABLET PO SCH ×2 (08:52→21:01)
[2018-08-12] MEDS: PANTOPRAZOLE 40 MG TABLET PO SCH (08:52)
[2018-08-12] MEDS: NITROGLYCERIN 2% OINT 1 INCH/GM PACK TOP SCH ×2 (08:55→21:02)
[2018-08-12] MEDS: ATORVASTATIN 40 MG TABLET PO SCH (21:01)
[2018-08-13] MEDS: ALBUTEROL/IPRATROPIUM 3 ML NEB RESP TX SCH ×2 (05:08→06:52)
[2018-08-13 08:10] VITALS: BP 151/85
[2018-08-13] MEDS: METOPROLOL TARTRATE 100 MG TABLET PO SCH (08:39)
[2018-08-13] MEDS: PANTOPRAZOLE 40 MG TABLET PO SCH (08:39)
[2018-08-13] MEDS: NITROGLYCERIN 2% OINT 1 INCH/GM PACK TOP SCH (08:39)
== END 2018-08-13 12:14 | disposition home health service (06) ==
LOC: EDBD → EDUNIT# → N.ED 19:40 → INTOOBSV 21:58 → N.EDINP 21:58 → N.TELEN 22:36
PROVIDERS: ADMIT Thoracic Surgery (Cardiothoracic Vascular Surgery); ATTEND Thoracic Surgery (Cardiothoracic Vascular Surgery)

== ENCOUNTER 2018-08-19 14:18 | Inpatient (IN) ==
[2018-08-19] MEDS ORDERED: MORPHINE 4 MG/1 ML VIAL IV STA (14:50)
[2018-08-19] MEDS ORDERED: ALBUTEROL/IPRATROPIUM 3 ML NEB RESP TX STA (14:50)
[2018-08-19] MEDS ORDERED: NITROGLYCERIN 2% OINT 1 INCH/GM PACK TOP STA (14:50)
[2018-08-19] MEDS ORDERED: FUROSEMIDE 100 MG/10 ML VIAL IV STA (14:50)
[2018-08-19] MEDS ORDERED: ONDANSETRON 4 MG/2 ML VIAL IV STA (14:50)
[2018-08-19] MEDS ORDERED: hydrALAZINE 20 MG/1 ML VIAL IV STA ×2 (14:50→16:29)
[2018-08-19 15:12] LABS: Basophils # 0.1 10*3/uL (0.0-0.2); Basophils % 0.3 % (0.0-0.8); Eosinophils # 0.1 10*3/uL (0.0-0.87); Eosinophils % 0.6 % (0.00-10.9); Hematocrit 23.2 VOL% (42.0-52.0); Hemoglobin 7.5 GM/DL (14.0-18.0); Immature Granulocytes % 0.8 %; Immature Granulocytes Absolute 0.11 #; Lymphocytes # 1.1 10*3/uL (1.4-4.0); Lymphocytes % 7.4 % (21.2-54.2); Mean Corpuscular HGB Conc 32.3 GM/DL (32-36); Mean Corpuscular Hemoglobin 28 PG (27-34); Mean Corpuscular Volume 87.2 FL (87-102); Mean Platelet Volume 9.5 FL (9.6-12.0); Monocytes # 1.6 10*3/uL (0.11-0.8); Monocytes % 11.5 % (1.7-12.7); Neutrophils # 11.4 10*3/uL (1.4-7.4); Neutrophils % 79.4 % (38.7-73.9); Platelet Count 367 T/CUMM (130-400); Red Blood Count 2.66 MC/CUMM (3.8-5.5); Red Cell Distribution Width 14.4 % (9.3-17.3); White Blood Count 14.3 T/CUMM (4-12)
[2018-08-19 15:22] LABS: INR 1.1; PT Patient Result 11.5 SECS
[2018-08-19 15:31] LABS: Albumin 3.1 G/DL (3.4-5.0); Bilirubin,Total 1.3 MG/DL (0.2-1.0); Calcium 8.4 MG/DL (8.5-10.1); Osmolality,Calculated 280.5 MOS/KG (273-304); Potassium 3.7 MMOL/L (3.5-5.1); Total Protein 7.4 G/DL (6.4-8.3)
[2018-08-19] MEDS ORDERED: ONDANSETRON 4 MG/2 ML VIAL IV PRN (16:35)
[2018-08-19] MEDS ORDERED: ALBUTEROL 2.5 MG/3 ML NEB RESP TX PRN (16:35)
[2018-08-19] MEDS ORDERED: MORPHINE 4 MG/1 ML VIAL IV PRN (16:35)
[2018-08-19] MEDS ORDERED: hydrALAZINE 20 MG/1 ML VIAL IV PRN (16:35)
[2018-08-19] MEDS ORDERED: SODIUM CHLORIDE 0.9% 1,000 ML IV PRN (16:44)
[2018-08-19 18:20] LABS: Apearance,Urine CLEAR (Clear); Bilirubin,Urine Negative (Negative); Blood, Urine Negative (Negative); Glucose,Urine (UA) Negative (Negative); Hyaline Casts,Urine 1 /LPF (0-3); Ketones,Urine Negative (Negative); Mucus,Urine Occasional /LPF (Occasional); Nitrite,Urine Negative (Negative); Protein,Urine Negative; RBC,Urine 1 /HPF (0-4); Squamous Epithelial Cell,Urine Occasional /HPF (0-10); Urine Color Yellow (Yellow); Urine Specific Gravity 1.009 (1.001-1.035); Urine Urobilinogen < 2.0 EU/DL (0.2-1.0); WBC,Urine 10 /HPF (0-6)
[2018-08-19] MEDS: NITROGLYCERIN 2% OINT 1 INCH/GM PACK TOP SCH (19:45)
[2018-08-19] MEDS: PANTOPRAZOLE 40 MG VIAL IV SCH (20:50)
[2018-08-19] MEDS: ATORVASTATIN 40 MG TABLET PO SCH (20:50)
[2018-08-19] MEDS: METOPROLOL TARTRATE 100 MG TABLET PO SCH (20:50)
[2018-08-19] MEDS ORDERED: niCARdipine INJ 25 MG in SODIUM CHLORIDE 0.9% 240 ML IV PRN (21:29)
[2018-08-20] MEDS: NITROGLYCERIN 2% OINT 1 INCH/GM PACK TOP SCH ×4 (00:45→17:50)
[2018-08-20 05:23] LABS: Hematocrit 26.7 VOL% (42.0-52.0); Hemoglobin 8.5 GM/DL (14.0-18.0)
[2018-08-20 05:46] LABS: Albumin 2.9 G/DL (3.4-5.0); Bilirubin,Total 1.5 MG/DL (0.2-1.0); Total Protein 7.7 G/DL (6.4-8.3)
[2018-08-20 05:47] LABS: Osmolality,Calculated 282.5 MOS/KG (273-304); Potassium 3.8 MMOL/L (3.5-5.1)
[2018-08-20] MEDS ORDERED: NIFEdipine 10 MG CAPSULE PO PRN (08:27)
[2018-08-20] MEDS: METOPROLOL TARTRATE 100 MG TABLET PO SCH ×2 (08:29→21:12)
[2018-08-20] MEDS: FUROSEMIDE 40 MG TABLET PO SCH (08:29)
[2018-08-20] MEDS: PANTOPRAZOLE 40 MG VIAL IV SCH ×2 (08:30→21:13)
[2018-08-20] MEDS ORDERED: FERROUS SULFATE 325 MG TABLET PO SCH (09:00)
[2018-08-20 10:05] LABS: Hemoglobin 9.4 GM/DL (14.0-18.0)
[2018-08-20] MEDS: ATORVASTATIN 40 MG TABLET PO SCH (21:12)
[2018-08-21] MEDS: NITROGLYCERIN 2% OINT 1 INCH/GM PACK TOP SCH ×4 (00:06→17:21)
[2018-08-21 05:26] LABS: Calcium 8.6 MG/DL (8.5-10.1); Osmolality,Calculated 280.8 MOS/KG (273-304); Potassium 3.8 MMOL/L (3.5-5.1)
[2018-08-21 05:31] LABS: Basophils # 0.1 10*3/uL (0.0-0.2); Basophils % 0.3 % (0.0-0.8); Eosinophils # 0.1 10*3/uL (0.0-0.87); Eosinophils % 0.7 % (0.00-10.9); Hematocrit 28.6 VOL% (42.0-52.0); Hemoglobin 9.1 GM/DL (14.0-18.0); Immature Granulocytes % 0.7 %; Immature Granulocytes Absolute 0.11 #; Lymphocytes # 1.3 10*3/uL (1.4-4.0); Mean Corpuscular HGB Conc 31.8 GM/DL (32-36); Mean Corpuscular Hemoglobin 28 PG (27-34); Mean Platelet Volume 10.1 FL (9.6-12.0); Monocytes # 2.1 10*3/uL (0.11-0.8); Monocytes % 12.7 % (1.7-12.7); Neutrophils # 12.9 10*3/uL (1.4-7.4); Neutrophils % 77.6 % (38.7-73.9); Platelet Count 387 T/CUMM (130-400); Red Blood Count 3.25 MC/CUMM (3.8-5.5); Red Cell Distribution Width 14.4 % (9.3-17.3); White Blood Count 16.6 T/CUMM (4-12)
[2018-08-21 06:13] LABS: Platelet Estimate Normal
[2018-08-21 06:14] LABS: Anisocytosis 1+; Giant Platelets Few; Hypochromasia Slight
[2018-08-21 07:02] LABS: Poikilocytosis Slight
[2018-08-21] MEDS: FUROSEMIDE 40 MG TABLET PO SCH (08:15)
[2018-08-21] MEDS: PANTOPRAZOLE 40 MG TABLET PO SCH ×2 (08:15→21:01)
[2018-08-21] MEDS: amLODIPine 10 MG TABLET PO SCH (08:16)
[2018-08-21] MEDS: METOPROLOL TARTRATE 100 MG TABLET PO SCH ×2 (08:18→21:01)
[2018-08-21] MEDS: ATORVASTATIN 40 MG TABLET PO SCH (21:01)
[2018-08-22] MEDS: NITROGLYCERIN 2% OINT 1 INCH/GM PACK TOP SCH ×4 (00:09→17:23)
[2018-08-22 06:47] LABS: Calcium 8.5 MG/DL (8.5-10.1); Osmolality,Calculated 273.1 MOS/KG (273-304); Potassium 3.9 MMOL/L (3.5-5.1)
[2018-08-22 07:02] LABS: Basophils % 0.3 % (0.0-0.8); Eosinophils # 0.1 10*3/uL (0.0-0.87); Eosinophils % 0.7 % (0.00-10.9); Hematocrit 31.5 VOL% (42.0-52.0); Hemoglobin 9.9 GM/DL (14.0-18.0); Immature Granulocytes % 0.6 %; Immature Granulocytes Absolute 0.08 #; Lymphocytes # 1.3 10*3/uL (1.4-4.0); Lymphocytes % 9.6 % (21.2-54.2); Mean Corpuscular HGB Conc 31.4 GM/DL (32-36); Mean Corpuscular Hemoglobin 28 PG (27-34); Mean Platelet Volume 11.8 FL (9.6-12.0); Monocytes # 2.1 10*3/uL (0.11-0.8); Monocytes % 15.7 % (1.7-12.7); Neutrophils # 9.9 10*3/uL (1.4-7.4); Neutrophils % 73.1 % (38.7-73.9); Platelet Count 240 T/CUMM (130-400); Red Blood Count 3.54 MC/CUMM (3.8-5.5); Red Cell Distribution Width 14.5 % (9.3-17.3); White Blood Count 13.6 T/CUMM (4-12)
[2018-08-22 07:31] LABS: Lymphocytes 7 % (20-55); Platelet Estimate Normal; Segmented Neutrophils 79 % (50-85); Total Cells Counted 100
[2018-08-22 07:32] LABS: Anisocytosis 1+
[2018-08-22] MEDS: amLODIPine 10 MG TABLET PO SCH (08:43)
[2018-08-22] MEDS: FUROSEMIDE 40 MG TABLET PO SCH (08:44)
[2018-08-22] MEDS: METOPROLOL TARTRATE 100 MG TABLET PO SCH ×2 (08:44→22:23)
[2018-08-22] MEDS: PANTOPRAZOLE 40 MG TABLET PO SCH ×2 (08:44→22:24)
[2018-08-22] MEDS: LACTATED RINGERS 1,000 ML IV SCH (14:14)
[2018-08-22] MEDS: ATORVASTATIN 40 MG TABLET PO SCH (22:23)
[2018-08-23] MEDS: NITROGLYCERIN 2% OINT 1 INCH/GM PACK TOP SCH ×4 (00:59→17:29)
[2018-08-23 05:47] LABS: Basophils # 0.1 10*3/uL (0.0-0.2); Basophils % 0.6 % (0.0-0.8); Eosinophils # 0.1 10*3/uL (0.0-0.87); Eosinophils % 0.8 % (0.00-10.9); Hematocrit 28.5 VOL% (42.0-52.0); Hemoglobin 8.9 GM/DL (14.0-18.0); Immature Granulocytes % 0.6 %; Immature Granulocytes Absolute 0.08 #; Lymphocytes # 1.5 10*3/uL (1.4-4.0); Lymphocytes % 10.6 % (21.2-54.2); Mean Corpuscular HGB Conc 31.2 GM/DL (32-36); Mean Corpuscular Hemoglobin 28 PG (27-34); Mean Corpuscular Volume 88.5 FL (87-102); Mean Platelet Volume 9.7 FL (9.6-12.0); Monocytes # 1.8 10*3/uL (0.11-0.8); Monocytes % 13.1 % (1.7-12.7); Neutrophils # 10.5 10*3/uL (1.4-7.4); Neutrophils % 74.3 % (38.7-73.9); Platelet Count 400 T/CUMM (130-400); Red Blood Count 3.22 MC/CUMM (3.8-5.5); Red Cell Distribution Width 14.5 % (9.3-17.3); White Blood Count 14.1 T/CUMM (4-12)
[2018-08-23 06:06] LABS: Calcium 8.6 MG/DL (8.5-10.1); Potassium 3.8 MMOL/L (3.5-5.1)
[2018-08-23] MEDS: amLODIPine 10 MG TABLET PO SCH (08:09)
[2018-08-23] MEDS: METOPROLOL TARTRATE 100 MG TABLET PO SCH (08:09)
[2018-08-23] MEDS: FUROSEMIDE 40 MG TABLET PO SCH (08:09)
[2018-08-23] MEDS: PANTOPRAZOLE 40 MG TABLET PO SCH (08:09)
[2018-08-23] MEDS ORDERED: ETOMIDATE 40 MG/20 ML VIAL IV ONE (10:24)
[2018-08-23] MEDS ORDERED: PROPOFOL 200 MG/20 ML VIAL IV ONE (10:24)
[2018-08-23 12:05] VITALS: BP 136/85
[2018-08-23] MEDS: LACTATED RINGERS 1,000 ML IV SCH (14:07)
[2018-08-25] MEDS ORDERED: INFLUENZA VIRUS VACCINE 0.5 ML SYRINGE IM ONE (09:00)
== END 2018-08-23 18:35 | disposition home health service (06) | DRG 254 ==
LOC: EDBD → EDUNIT# → N.ED 14:18 → SUATTDRO 16:35 → N.EDINP 16:35 → N.ICU 18:30 → N.TELEN 08-21 09:06
PROVIDERS: ADMIT Internal Medicine; ATTEND Internal Medicine

== ENCOUNTER 2018-08-26 11:18 | Inpatient (IN) ==
[2018-08-26 12:27] LABS: Basophils # 0.1 10*3/uL (0.0-0.2); Basophils % 0.4 % (0.0-0.8); Eosinophils % 0.2 % (0.00-10.9); Hematocrit 32.6 VOL% (42.0-52.0); Hemoglobin 10.4 GM/DL (14.0-18.0); Immature Granulocytes % 0.6 %; Immature Granulocytes Absolute 0.08 #; Lymphocytes # 0.9 10*3/uL (1.4-4.0); Lymphocytes % 6.9 % (21.2-54.2); Mean Corpuscular HGB Conc 31.9 GM/DL (32-36); Mean Corpuscular Hemoglobin 28 PG (27-34); Mean Corpuscular Volume 86.7 FL (87-102); Mean Platelet Volume 9.6 FL (9.6-12.0); Monocytes # 1.4 10*3/uL (0.11-0.8); Monocytes % 10.3 % (1.7-12.7); Neutrophils # 11.1 10*3/uL (1.4-7.4); Neutrophils % 81.6 % (38.7-73.9); Platelet Count 389 T/CUMM (130-400); Red Blood Count 3.76 MC/CUMM (3.8-5.5); Red Cell Distribution Width 13.9 % (9.3-17.3); White Blood Count 13.6 T/CUMM (4-12)
[2018-08-26 13:00] LABS: Albumin 3.1 G/DL (3.4-5.0); Bilirubin,Total 1.2 MG/DL (0.2-1.0); Calcium 9.3 MG/DL (8.5-10.1); Osmolality,Calculated 273.1 MOS/KG (273-304); Total Protein 8.7 G/DL (6.4-8.3)
[2018-08-26] MEDS ORDERED: METOPROLOL TARTRATE 5 MG/5 ML VIAL IV ONE (15:34)
[2018-08-26] MEDS ORDERED: HEPARIN 5,000 UNIT/1 ML VIAL IV ONE (15:46)
[2018-08-26] MEDS ORDERED: HEPARIN DRIP 25,000 UNITS/500 ML PREMIX IV SCH ×3 (16:00→16:30)
[2018-08-26] MEDS ORDERED: METOPROLOL TARTRATE 5 MG/5 ML VIAL IV STA (16:25)
[2018-08-26] MEDS ORDERED: ALBUTEROL 2.5 MG/3 ML NEB RESP TX PRN (16:42)
[2018-08-26 17:06] LABS: ABG Base Excess 4.6 MMOL/L (-2.5-2.5); ABG HCO3 28.3 MMOL/L (20-26); ABG Oxygen Saturation 97.2 % (95-100); ABG PCO2 38.5 MM HG (35-48); ABG PH 7.484 (7.35-7.45); ABG PO2 102.2 MM HG (80-95); ABG TCO2 29.5 MMOL/L (23-27)
[2018-08-26] MEDS: FUROSEMIDE 40 MG TABLET PO SCH (18:07)
[2018-08-26] MEDS: PIPERACILLIN/TAZOBACTAM 3,375 MG in SODIUM CHLORIDE 0.9% 100 ML IV SCH (18:08)
[2018-08-26] MEDS ORDERED: hydrALAZINE 20 MG/1 ML VIAL IV PRN (18:39)
[2018-08-26 18:50] LABS: INR 1.1; PT Patient Result 12.1 SECS
[2018-08-26] MEDS ORDERED: niCARdipine INJ 25 MG in SODIUM CHLORIDE 0.9% 240 ML IV PRN (19:16)
[2018-08-26] MEDS: ALBUTEROL/IPRATROPIUM 3 ML NEB RESP TX SCH (20:00)
[2018-08-26] MEDS ORDERED: amLODIPine 10 MG TABLET PO ONE (21:00)
[2018-08-26] MEDS: PANTOPRAZOLE 40 MG TABLET PO SCH (22:13)
[2018-08-26] MEDS: METOPROLOL TARTRATE 100 MG TABLET PO SCH (22:13)
[2018-08-26] MEDS: ATORVASTATIN 40 MG TABLET PO SCH (22:13)
[2018-08-27] MEDS: ALBUTEROL/IPRATROPIUM 3 ML NEB RESP TX SCH ×4 (01:48→19:43)
[2018-08-27] MEDS: PIPERACILLIN/TAZOBACTAM 3,375 MG in SODIUM CHLORIDE 0.9% 100 ML IV SCH ×3 (03:00→17:28)
[2018-08-27 03:33] LABS: Basophils # 0.1 10*3/uL (0.0-0.2); Basophils % 0.4 % (0.0-0.8); Eosinophils # 0.1 10*3/uL (0.0-0.87); Eosinophils % 0.4 % (0.00-10.9); Hematocrit 27.4 VOL% (42.0-52.0); Hemoglobin 8.7 GM/DL (14.0-18.0); Immature Granulocytes % 0.6 %; Immature Granulocytes Absolute 0.08 #; Lymphocytes # 0.8 10*3/uL (1.4-4.0); Mean Corpuscular HGB Conc 31.8 GM/DL (32-36); Mean Corpuscular Hemoglobin 28 PG (27-34); Mean Corpuscular Volume 87.5 FL (87-102); Mean Platelet Volume 10.2 FL (9.6-12.0); Monocytes # 1.9 10*3/uL (0.11-0.8); Monocytes % 13.5 % (1.7-12.7); Neutrophils # 11.1 10*3/uL (1.4-7.4); Neutrophils % 79.1 % (38.7-73.9); Platelet Count 390 T/CUMM (130-400); Red Blood Count 3.13 MC/CUMM (3.8-5.5); Red Cell Distribution Width 14.1 % (9.3-17.3)
[2018-08-27] MEDS: FUROSEMIDE 40 MG/4 ML VIAL IV SCH ×2 (09:38→15:01)
[2018-08-27] MEDS: amLODIPine 10 MG TABLET PO SCH (09:42)
[2018-08-27] MEDS: METOPROLOL TARTRATE 100 MG TABLET PO SCH (09:42)
[2018-08-27] MEDS: PANTOPRAZOLE 40 MG TABLET PO SCH ×2 (09:42→21:58)
[2018-08-27] MEDS: ASPIRIN EC 81 MG TABLET PO SCH (09:42)
[2018-08-27] MEDS: FERROUS SULFATE 325 MG TABLET PO SCH (09:42)
[2018-08-27] MEDS: FUROSEMIDE 40 MG TABLET PO SCH (09:59)
[2018-08-27 10:33] LABS: Albumin 2.6 G/DL (3.4-5.0); Bilirubin,Total 1.2 MG/DL (0.2-1.0); Calcium 8.9 MG/DL (8.5-10.1); Osmolality,Calculated 277.8 MOS/KG (273-304); Potassium 3.7 MMOL/L (3.5-5.1)
[2018-08-27 14:04] LABS: Albumin 2.6 G/DL (3.4-5.0)
[2018-08-27 14:22] LABS: PT Patient Result 11.3 SECS
[2018-08-27 19:36] LABS: Eosinophils,Pleural Fluid 1 %; Lymphocytes,Pleural Fluid 35 %; Neutrophils,Pleural Fluid 64 %
[2018-08-27 19:38] LABS: RBC,Pleural Fluid > 100000 T/CUMM
[2018-08-27] MEDS: CARVEDILOL 12.5 MG TABLET PO SCH (21:57)
[2018-08-27] MEDS: ATORVASTATIN 40 MG TABLET PO SCH (21:58)
[2018-08-28 00:12] LABS: Apearance,Urine CLEAR (Clear); Bacteria,Urine Occasional /HPF (Few); Bilirubin,Urine Negative (Negative); Blood, Urine Negative (Negative); Glucose,Urine (UA) Negative (Negative); Ketones,Urine Negative (Negative); Mucus,Urine Occasional /LPF (Occasional); Nitrite,Urine Negative (Negative); Protein,Urine Negative; RBC,Urine 1 /HPF (0-4); Urine Color Yellow (Yellow); Urine Specific Gravity 1.006 (1.001-1.035); Urine Urobilinogen < 2.0 EU/DL (0.2-1.0); WBC,Urine 3 /HPF (0-6)
[2018-08-28] MEDS: ALBUTEROL/IPRATROPIUM 3 ML NEB RESP TX SCH ×4 (01:10→20:00)
[2018-08-28] MEDS: PIPERACILLIN/TAZOBACTAM 3,375 MG in SODIUM CHLORIDE 0.9% 100 ML IV SCH ×3 (02:55→18:00)
[2018-08-28 05:37] LABS: Basophils # 0.1 10*3/uL (0.0-0.2); Basophils % 0.4 % (0.0-0.8); Eosinophils # 0.1 10*3/uL (0.0-0.87); Eosinophils % 1.1 % (0.00-10.9); Hematocrit 29.1 VOL% (42.0-52.0); Immature Granulocytes % 0.5 %; Immature Granulocytes Absolute 0.06 #; Lymphocytes # 1.3 10*3/uL (1.4-4.0); Lymphocytes % 10.8 % (21.2-54.2); Mean Corpuscular HGB Conc 30.9 GM/DL (32-36); Mean Corpuscular Hemoglobin 27 PG (27-34); Mean Corpuscular Volume 86.9 FL (87-102); Mean Platelet Volume 10.5 FL (9.6-12.0); Monocytes # 1.7 10*3/uL (0.11-0.8); Monocytes % 14.4 % (1.7-12.7); Neutrophils # 8.7 10*3/uL (1.4-7.4); Neutrophils % 72.8 % (38.7-73.9); Platelet Count 379 T/CUMM (130-400); Red Blood Count 3.35 MC/CUMM (3.8-5.5); Red Cell Distribution Width 14.1 % (9.3-17.3)
[2018-08-28 05:59] LABS: Calcium 8.6 MG/DL (8.5-10.1); Osmolality,Calculated 272.2 MOS/KG (273-304); Potassium 3.5 MMOL/L (3.5-5.1)
[2018-08-28] MEDS: CARVEDILOL 12.5 MG TABLET PO SCH ×2 (09:03→22:12)
[2018-08-28] MEDS: ASPIRIN EC 81 MG TABLET PO SCH (09:03)
[2018-08-28] MEDS: PANTOPRAZOLE 40 MG TABLET PO SCH ×2 (09:03→22:12)
[2018-08-28] MEDS: FUROSEMIDE 40 MG/4 ML VIAL IV SCH (09:03)
[2018-08-28] MEDS: amLODIPine 10 MG TABLET PO SCH (09:03)
[2018-08-28] MEDS: FERROUS SULFATE 325 MG TABLET PO SCH (09:03)
[2018-08-28] MEDS: ONDANSETRON 4 MG/2 ML VIAL IV PRN (13:42)
[2018-08-28] MEDS: FUROSEMIDE 40 MG TABLET PO SCH (15:11)
[2018-08-28] MEDS ORDERED: DOCUSATE SODIUM 100 MG CAPSULE PO PRN (15:45)
[2018-08-28] MEDS: ATORVASTATIN 40 MG TABLET PO SCH (22:12)
[2018-08-29] MEDS: ALBUTEROL/IPRATROPIUM 3 ML NEB RESP TX SCH ×4 (01:42→19:24)
[2018-08-29] MEDS: PIPERACILLIN/TAZOBACTAM 3,375 MG in SODIUM CHLORIDE 0.9% 100 ML IV SCH ×3 (02:05→17:30)
[2018-08-29 05:21] LABS: Basophils # 0.1 10*3/uL (0.0-0.2); Basophils % 0.4 % (0.0-0.8); Eosinophils # 0.1 10*3/uL (0.0-0.87); Eosinophils % 0.7 % (0.00-10.9); Hematocrit 26.2 VOL% (42.0-52.0); Hemoglobin 8.2 GM/DL (14.0-18.0); Immature Granulocytes % 0.6 %; Immature Granulocytes Absolute 0.07 #; Lymphocytes # 1.2 10*3/uL (1.4-4.0); Lymphocytes % 9.9 % (21.2-54.2); Mean Corpuscular HGB Conc 31.3 GM/DL (32-36); Mean Corpuscular Hemoglobin 27 PG (27-34); Mean Corpuscular Volume 86.5 FL (87-102); Mean Platelet Volume 9.9 FL (9.6-12.0); Monocytes # 1.9 10*3/uL (0.11-0.8); Monocytes % 15.7 % (1.7-12.7); Neutrophils # 8.8 10*3/uL (1.4-7.4); Neutrophils % 72.7 % (38.7-73.9); Platelet Count 376 T/CUMM (130-400); Red Blood Count 3.03 MC/CUMM (3.8-5.5); White Blood Count 12.1 T/CUMM (4-12)
[2018-08-29 05:33] LABS: Calcium 8.3 MG/DL (8.5-10.1); Osmolality,Calculated 271.2 MOS/KG (273-304); Potassium 3.2 MMOL/L (3.5-5.1)
[2018-08-29 05:44] LABS: Hypochromasia 1+; Lymphocytes 9 % (20-55); Segmented Neutrophils 80 % (50-85); Total Cells Counted 100
[2018-08-29 05:45] LABS: Microcytosis Slight; Ovalocytes Slight; Platelet Estimate Normal
[2018-08-29] MEDS: POTASSIUM CHLORIDE 20 MEQ TABLET PO PRN ×6 (07:07→23:15)
[2018-08-29] MEDS: amLODIPine 10 MG TABLET PO SCH (09:40)
[2018-08-29] MEDS: CARVEDILOL 12.5 MG TABLET PO SCH ×2 (09:40→20:37)
[2018-08-29] MEDS: PANTOPRAZOLE 40 MG TABLET PO SCH ×2 (09:40→20:37)
[2018-08-29] MEDS: POLYETHYLENE GLYCOL POWDER 17 GM PACK PO PRN (09:40)
[2018-08-29] MEDS: FERROUS SULFATE 325 MG TABLET PO SCH (09:40)
[2018-08-29] MEDS: FUROSEMIDE 40 MG TABLET PO SCH ×2 (09:40→15:23)
[2018-08-29] MEDS: ASPIRIN EC 81 MG TABLET PO SCH (09:40)
[2018-08-29] MEDS ORDERED: FUROSEMIDE 40 MG/4 ML VIAL IV ONE (10:14)
[2018-08-29] MEDS: metOLazone 2.5 MG TABLET PO SCH (11:27)
[2018-08-29] MEDS: ACETAMINOPHEN 325 MG TABLET PO PRN (20:37)
[2018-08-29] MEDS: ATORVASTATIN 40 MG TABLET PO SCH (20:37)
[2018-08-30] MEDS: ALBUTEROL/IPRATROPIUM 3 ML NEB RESP TX SCH ×4 (00:57→19:27)
[2018-08-30] MEDS: PIPERACILLIN/TAZOBACTAM 3,375 MG in SODIUM CHLORIDE 0.9% 100 ML IV SCH ×3 (01:40→21:00)
[2018-08-30 04:39] LABS: Osmolality,Calculated 272.4 MOS/KG (273-304); Potassium 3.4 MMOL/L (3.5-5.1)
[2018-08-30] MEDS: ASPIRIN EC 81 MG TABLET PO SCH (09:25)
[2018-08-30] MEDS: FUROSEMIDE 40 MG TABLET PO SCH (09:25)
[2018-08-30] MEDS: FERROUS SULFATE 325 MG TABLET PO SCH (09:25)
[2018-08-30] MEDS: metOLazone 2.5 MG TABLET PO SCH (09:26)
[2018-08-30] MEDS: PANTOPRAZOLE 40 MG TABLET PO SCH (09:26)
[2018-08-30] MEDS: CARVEDILOL 12.5 MG TABLET PO SCH ×2 (09:26→20:42)
[2018-08-30] MEDS: amLODIPine 10 MG TABLET PO SCH (09:26)
[2018-08-30] MEDS ORDERED: FUROSEMIDE 40 MG TABLET PO ONE (15:17)
[2018-08-30] MEDS: ATORVASTATIN 40 MG TABLET PO SCH (20:42)
[2018-08-31] MEDS: ALBUTEROL/IPRATROPIUM 3 ML NEB RESP TX SCH ×4 (00:11→19:36)
[2018-08-31] MEDS: PANTOPRAZOLE 40 MG VIAL IV SCH ×3 (01:06→21:37)
[2018-08-31] MEDS ORDERED: ALPRAZolam 0.25 MG TABLET PO ONE (01:22)
[2018-08-31] MEDS: PIPERACILLIN/TAZOBACTAM 3,375 MG in SODIUM CHLORIDE 0.9% 100 ML IV SCH (03:18)
[2018-08-31 04:35] LABS: Basophils % 0.3 % (0.0-0.8); Eosinophils % 0.1 % (0.00-10.9); Hematocrit 28.3 VOL% (42.0-52.0); Immature Granulocytes % 0.6 %; Immature Granulocytes Absolute 0.08 #; Lymphocytes # 1.5 10*3/uL (1.4-4.0); Lymphocytes % 10.1 % (21.2-54.2); Mean Corpuscular HGB Conc 31.8 GM/DL (32-36); Mean Corpuscular Hemoglobin 27 PG (27-34); Mean Corpuscular Volume 85.2 FL (87-102); Mean Platelet Volume 10.1 FL (9.6-12.0); Monocytes # 2.2 10*3/uL (0.11-0.8); Monocytes % 15.4 % (1.7-12.7); Neutrophils # 10.5 10*3/uL (1.4-7.4); Neutrophils % 73.5 % (38.7-73.9); Platelet Count 433 T/CUMM (130-400); Red Blood Count 3.32 MC/CUMM (3.8-5.5); Red Cell Distribution Width 13.5 % (9.3-17.3); White Blood Count 14.3 T/CUMM (4-12)
[2018-08-31 04:38] LABS: Calcium 9.2 MG/DL (8.5-10.1); Osmolality,Calculated 273.4 MOS/KG (273-304); Potassium 2.7 MMOL/L (3.5-5.1)
[2018-08-31] MEDS: POTASSIUM CHLORIDE 20 MEQ TABLET PO PRN ×5 (09:00→23:57)
[2018-08-31] MEDS: ASPIRIN EC 81 MG TABLET PO SCH (09:10)
[2018-08-31] MEDS: FERROUS SULFATE 325 MG TABLET PO SCH (09:15)
[2018-08-31] MEDS: amLODIPine 10 MG TABLET PO SCH (09:19)
[2018-08-31] MEDS: CARVEDILOL 25 MG TABLET PO SCH ×2 (10:48→21:41)
[2018-08-31] MEDS: CARVEDILOL 12.5 MG TABLET PO SCH (11:04)
[2018-08-31] MEDS ORDERED: MAGNESIUM CITRATE 300 ML BOTTLE PO ONE (13:24)
[2018-08-31] MEDS: ONDANSETRON 4 MG/2 ML VIAL IV PRN (18:40)
[2018-08-31] MEDS: ATORVASTATIN 40 MG TABLET PO SCH (21:41)
[2018-09-01] MEDS: ALBUTEROL/IPRATROPIUM 3 ML NEB RESP TX SCH ×4 (01:44→19:03)
[2018-09-01] MEDS: POTASSIUM CHLORIDE 20 MEQ TABLET PO PRN ×2 (02:57→05:22)
[2018-09-01] MEDS: CARVEDILOL 25 MG TABLET PO SCH ×2 (09:55→22:04)
[2018-09-01] MEDS: PANTOPRAZOLE 40 MG VIAL IV SCH ×2 (10:03→22:05)
[2018-09-01] MEDS: SODIUM CHLORIDE 0.9% 1,000 ML IV SCH (11:47)
[2018-09-01] MEDS: amLODIPine 10 MG TABLET PO SCH (14:30)
[2018-09-01] MEDS: ASPIRIN EC 81 MG TABLET PO SCH (14:30)
[2018-09-01] MEDS: FERROUS SULFATE 325 MG TABLET PO SCH (14:31)
[2018-09-01] MEDS: ATORVASTATIN 40 MG TABLET PO SCH (22:04)
[2018-09-01] MEDS ORDERED: ALPRAZolam 0.25 MG TABLET PO ONE (23:00)
[2018-09-02] MEDS: ALBUTEROL/IPRATROPIUM 3 ML NEB RESP TX SCH ×4 (00:19→19:17)
[2018-09-02 03:43] LABS: Basophils # 0.1 10*3/uL (0.0-0.2); Basophils % 0.4 % (0.0-0.8); Eosinophils # 0.1 10*3/uL (0.0-0.87); Eosinophils % 0.4 % (0.00-10.9); Hematocrit 23.4 VOL% (42.0-52.0); Hemoglobin 7.4 GM/DL (14.0-18.0); Immature Granulocytes % 0.7 %; Immature Granulocytes Absolute 0.09 #; Lymphocytes # 1.6 10*3/uL (1.4-4.0); Lymphocytes % 11.3 % (21.2-54.2); Mean Corpuscular HGB Conc 31.6 GM/DL (32-36); Mean Corpuscular Hemoglobin 27 PG (27-34); Mean Platelet Volume 9.9 FL (9.6-12.0); Monocytes # 2.2 10*3/uL (0.11-0.8); Monocytes % 15.6 % (1.7-12.7); Neutrophils # 9.9 10*3/uL (1.4-7.4); Neutrophils % 71.6 % (38.7-73.9); Platelet Count 410 T/CUMM (130-400); Red Blood Count 2.72 MC/CUMM (3.8-5.5); Red Cell Distribution Width 13.5 % (9.3-17.3); White Blood Count 13.8 T/CUMM (4-12)
[2018-09-02 04:07] LABS: Calcium 9.2 MG/DL (8.5-10.1); Osmolality,Calculated 282.2 MOS/KG (273-304); Potassium 3.2 MMOL/L (3.5-5.1)
[2018-09-02 04:27] LABS: Hypochromasia Slight; Lymphocytes 13 % (20-55); Platelet Estimate Normal; Polychromasia Few; Segmented Neutrophils 85 % (50-85); Total Cells Counted 100
[2018-09-02] MEDS ORDERED: SODIUM CHLORIDE 0.9% 1,000 ML IV PRN (05:24)
[2018-09-02] MEDS ORDERED: FUROSEMIDE 40 MG/4 ML VIAL IV ONE (05:27)
[2018-09-02] MEDS: POTASSIUM CHLORIDE 20 MEQ TABLET PO PRN ×4 (05:43→13:36)
[2018-09-02] MEDS: SODIUM CHLORIDE 0.9% 1,000 ML IV SCH ×2 (06:03→08:21)
[2018-09-02] MEDS: CARVEDILOL 25 MG TABLET PO SCH ×2 (08:20→20:56)
[2018-09-02] MEDS: amLODIPine 10 MG TABLET PO SCH (08:20)
[2018-09-02] MEDS: FERROUS SULFATE 325 MG TABLET PO SCH (08:20)
[2018-09-02] MEDS: PANTOPRAZOLE 40 MG VIAL IV SCH ×2 (08:20→20:56)
[2018-09-02] MEDS: ASPIRIN EC 81 MG TABLET PO SCH (08:20)
[2018-09-02] MEDS ORDERED: FUROSEMIDE 40 MG/4 ML VIAL ONE (13:34)
[2018-09-02] MEDS: ATORVASTATIN 40 MG TABLET PO SCH (20:56)
[2018-09-02] MEDS: ACETAMINOPHEN 325 MG TABLET PO PRN (22:25)
[2018-09-03] MEDS: ALBUTEROL/IPRATROPIUM 3 ML NEB RESP TX SCH ×4 (02:05→19:53)
[2018-09-03] MEDS: SODIUM CHLORIDE 0.9% 1,000 ML IV SCH (05:58)
[2018-09-03 06:06] LABS: Basophils # 0.1 10*3/uL (0.0-0.2); Basophils % 0.5 % (0.0-0.8); Eosinophils # 0.1 10*3/uL (0.0-0.87); Eosinophils % 0.5 % (0.00-10.9); Hematocrit 29.1 VOL% (42.0-52.0); Hemoglobin 9.2 GM/DL (14.0-18.0); Immature Granulocytes % 0.6 %; Immature Granulocytes Absolute 0.08 #; Lymphocytes # 1.9 10*3/uL (1.4-4.0); Lymphocytes % 14.7 % (21.2-54.2); Mean Corpuscular HGB Conc 31.6 GM/DL (32-36); Mean Corpuscular Hemoglobin 27 PG (27-34); Mean Corpuscular Volume 86.1 FL (87-102); Mean Platelet Volume 10.5 FL (9.6-12.0); Monocytes % 15.3 % (1.7-12.7); Neutrophils # 8.9 10*3/uL (1.4-7.4); Neutrophils % 68.4 % (38.7-73.9); Platelet Count 408 T/CUMM (130-400); Red Blood Count 3.38 MC/CUMM (3.8-5.5); Red Cell Distribution Width 13.4 % (9.3-17.3)
[2018-09-03 06:27] LABS: Calcium 8.9 MG/DL (8.5-10.1); Osmolality,Calculated 271.7 MOS/KG (273-304); Potassium 3.5 MMOL/L (3.5-5.1)
[2018-09-03] MEDS ORDERED: LIDOCAINE 2% 5 ML VIAL ONE (12:22)
[2018-09-03] MEDS ORDERED: PROPOFOL 200 MG/20 ML VIAL IV ONE (12:22)
[2018-09-03] MEDS ORDERED: ETOMIDATE 20 MG/10 ML VIAL IV ONE (12:22)
[2018-09-03] MEDS ORDERED: GLUCAGON 1 MG VIAL ONE (13:02)
[2018-09-03] MEDS: CARVEDILOL 25 MG TABLET PO SCH ×2 (14:26→21:07)
[2018-09-03] MEDS: amLODIPine 10 MG TABLET PO SCH (14:26)
[2018-09-03] MEDS: PANTOPRAZOLE 40 MG VIAL IV SCH ×2 (14:26→21:07)
[2018-09-03] MEDS: ASPIRIN EC 81 MG TABLET PO SCH (14:26)
[2018-09-03] MEDS: FERROUS SULFATE 325 MG TABLET PO SCH (14:26)
[2018-09-03] MEDS: predniSONE 20 MG TABLET PO SCH (16:34)
[2018-09-03] MEDS: ATORVASTATIN 40 MG TABLET PO SCH (21:07)
[2018-09-04] MEDS: ALBUTEROL/IPRATROPIUM 3 ML NEB RESP TX SCH ×4 (01:18→19:57)
[2018-09-04 04:02] LABS: Basophils % 0.1 % (0.0-0.8); Hematocrit 27.1 VOL% (42.0-52.0); Hemoglobin 8.8 GM/DL (14.0-18.0); Immature Granulocytes % 0.7 %; Lymphocytes # 1.3 10*3/uL (1.4-4.0); Lymphocytes % 9.3 % (21.2-54.2); Mean Corpuscular HGB Conc 32.5 GM/DL (32-36); Mean Corpuscular Hemoglobin 28 PG (27-34); Mean Corpuscular Volume 85.8 FL (87-102); Mean Platelet Volume 10.2 FL (9.6-12.0); Monocytes # 1.5 10*3/uL (0.11-0.8); Monocytes % 10.3 % (1.7-12.7); Neutrophils # 11.3 10*3/uL (1.4-7.4); Neutrophils % 79.6 % (38.7-73.9); Platelet Count 379 T/CUMM (130-400); Red Blood Count 3.16 MC/CUMM (3.8-5.5); Red Cell Distribution Width 13.3 % (9.3-17.3); White Blood Count 14.2 T/CUMM (4-12)
[2018-09-04 04:28] LABS: Calcium 8.7 MG/DL (8.5-10.1); Osmolality,Calculated 278.1 MOS/KG (273-304); Potassium 3.8 MMOL/L (3.5-5.1)
[2018-09-04] MEDS: SODIUM CHLORIDE 0.9% 1,000 ML IV SCH (04:51)
[2018-09-04] MEDS: PANTOPRAZOLE 40 MG VIAL IV SCH ×2 (09:59→21:37)
[2018-09-04] MEDS: FERROUS SULFATE 325 MG TABLET PO SCH (09:59)
[2018-09-04] MEDS: ASPIRIN EC 81 MG TABLET PO SCH (10:00)
[2018-09-04] MEDS: amLODIPine 10 MG TABLET PO SCH (10:00)
[2018-09-04] MEDS: predniSONE 20 MG TABLET PO SCH (10:00)
[2018-09-04] MEDS: CARVEDILOL 25 MG TABLET PO SCH ×2 (10:02→21:37)
[2018-09-04] MEDS: ATORVASTATIN 40 MG TABLET PO SCH (21:36)
[2018-09-05] MEDS: ALBUTEROL/IPRATROPIUM 3 ML NEB RESP TX SCH ×4 (01:26→19:56)
[2018-09-05 04:46] LABS: Basophils % 0.2 % (0.0-0.8); Eosinophils % 0.1 % (0.00-10.9); Hematocrit 25.8 VOL% (42.0-52.0); Hemoglobin 8.2 GM/DL (14.0-18.0); Immature Granulocytes % 0.7 %; Lymphocytes # 1.6 10*3/uL (1.4-4.0); Lymphocytes % 10.8 % (21.2-54.2); Mean Corpuscular HGB Conc 31.8 GM/DL (32-36); Mean Corpuscular Hemoglobin 27 PG (27-34); Mean Platelet Volume 10.1 FL (9.6-12.0); Neutrophils # 11.4 10*3/uL (1.4-7.4); Neutrophils % 75.2 % (38.7-73.9); Platelet Count 366 T/CUMM (130-400); Red Cell Distribution Width 13.6 % (9.3-17.3); White Blood Count 15.1 T/CUMM (4-12)
[2018-09-05 05:15] LABS: Calcium 8.6 MG/DL (8.5-10.1); Osmolality,Calculated 268.7 MOS/KG (273-304); Potassium 3.7 MMOL/L (3.5-5.1)
[2018-09-05] MEDS: predniSONE 20 MG TABLET PO SCH (09:30)
[2018-09-05] MEDS: CARVEDILOL 25 MG TABLET PO SCH ×2 (09:30→21:34)
[2018-09-05] MEDS: PANTOPRAZOLE 40 MG VIAL IV SCH ×2 (09:30→21:34)
[2018-09-05] MEDS: amLODIPine 10 MG TABLET PO SCH (09:30)
[2018-09-05] MEDS: ASPIRIN EC 81 MG TABLET PO SCH (09:31)
[2018-09-05] MEDS: FERROUS SULFATE 325 MG TABLET PO SCH (09:31)
[2018-09-05] MEDS: ATORVASTATIN 40 MG TABLET PO SCH (21:34)
[2018-09-06] MEDS: ALBUTEROL/IPRATROPIUM 3 ML NEB RESP TX SCH ×4 (00:29→20:07)
[2018-09-06 04:33] LABS: Basophils % 0.2 % (0.0-0.8); Eosinophils % 0.1 % (0.00-10.9); Hematocrit 25.4 VOL% (42.0-52.0); Hemoglobin 8.2 GM/DL (14.0-18.0); Immature Granulocytes % 0.9 %; Immature Granulocytes Absolute 0.15 #; Lymphocytes # 1.8 10*3/uL (1.4-4.0); Lymphocytes % 10.8 % (21.2-54.2); Mean Corpuscular HGB Conc 32.3 GM/DL (32-36); Mean Corpuscular Hemoglobin 28 PG (27-34); Mean Corpuscular Volume 86.4 FL (87-102); Mean Platelet Volume 9.9 FL (9.6-12.0); Monocytes # 2.1 10*3/uL (0.11-0.8); Monocytes % 12.5 % (1.7-12.7); Neutrophils # 12.5 10*3/uL (1.4-7.4); Neutrophils % 75.5 % (38.7-73.9); Platelet Count 383 T/CUMM (130-400); Red Blood Count 2.94 MC/CUMM (3.8-5.5); Red Cell Distribution Width 13.8 % (9.3-17.3); White Blood Count 16.6 T/CUMM (4-12)
[2018-09-06 04:59] LABS: Calcium 8.6 MG/DL (8.5-10.1); Osmolality,Calculated 269.5 MOS/KG (273-304); Potassium 4.1 MMOL/L (3.5-5.1)
[2018-09-06] MEDS: FERROUS SULFATE 325 MG TABLET PO SCH (09:11)
[2018-09-06] MEDS: ASPIRIN EC 81 MG TABLET PO SCH (09:11)
[2018-09-06] MEDS: CARVEDILOL 25 MG TABLET PO SCH ×2 (09:11→20:21)
[2018-09-06] MEDS: amLODIPine 10 MG TABLET PO SCH (09:11)
[2018-09-06] MEDS: predniSONE 20 MG TABLET PO SCH (09:11)
[2018-09-06] MEDS: PANTOPRAZOLE 40 MG TABLET PO SCH (09:13)
[2018-09-06] MEDS: POLYETHYLENE GLYCOL POWDER 17 GM PACK PO PRN (10:28)
[2018-09-06] MEDS: ATORVASTATIN 40 MG TABLET PO SCH (20:21)
[2018-09-07] MEDS: ALBUTEROL/IPRATROPIUM 3 ML NEB RESP TX SCH ×4 (00:36→19:58)
[2018-09-07 04:39] LABS: Basophils % 0.2 % (0.0-0.8); Eosinophils % 0.1 % (0.00-10.9); Hematocrit 24.8 VOL% (42.0-52.0); Hemoglobin 7.7 GM/DL (14.0-18.0); Immature Granulocytes Absolute 0.16 #; Lymphocytes # 1.8 10*3/uL (1.4-4.0); Lymphocytes % 10.9 % (21.2-54.2); Mean Corpuscular Hemoglobin 27 PG (27-34); Mean Corpuscular Volume 87.6 FL (87-102); Mean Platelet Volume 10.2 FL (9.6-12.0); Monocytes # 2.3 10*3/uL (0.11-0.8); Monocytes % 13.8 % (1.7-12.7); Neutrophils # 12.2 10*3/uL (1.4-7.4); Platelet Count 371 T/CUMM (130-400); Red Blood Count 2.83 MC/CUMM (3.8-5.5); White Blood Count 16.5 T/CUMM (4-12)
[2018-09-07 04:58] LABS: Calcium 8.6 MG/DL (8.5-10.1); Osmolality,Calculated 274.2 MOS/KG (273-304); Potassium 4.1 MMOL/L (3.5-5.1)
[2018-09-07] MEDS ORDERED: SODIUM CHLORIDE 0.9% 1,000 ML IV PRN (08:45)
[2018-09-07] MEDS: ASPIRIN EC 81 MG TABLET PO SCH (08:53)
[2018-09-07] MEDS: amLODIPine 10 MG TABLET PO SCH (08:53)
[2018-09-07] MEDS: FERROUS SULFATE 325 MG TABLET PO SCH (08:53)
[2018-09-07] MEDS: PANTOPRAZOLE 40 MG TABLET PO SCH (08:53)
[2018-09-07] MEDS: predniSONE 20 MG TABLET PO SCH (08:53)
[2018-09-07] MEDS: CARVEDILOL 25 MG TABLET PO SCH ×2 (08:53→21:35)
[2018-09-07] MEDS ORDERED: FUROSEMIDE 40 MG/4 ML VIAL IV ONE (10:37)
[2018-09-07 16:32] LABS: Hematocrit 30.5 VOL% (42.0-52.0); Hemoglobin 9.9 GM/DL (14.0-18.0)
[2018-09-07] MEDS: ATORVASTATIN 40 MG TABLET PO SCH (21:34)
[2018-09-08] MEDS: ALBUTEROL/IPRATROPIUM 3 ML NEB RESP TX SCH ×3 (01:04→13:14)
[2018-09-08] MEDS: predniSONE 20 MG TABLET PO SCH (08:59)
[2018-09-08] MEDS: amLODIPine 10 MG TABLET PO SCH (08:59)
[2018-09-08] MEDS: CARVEDILOL 25 MG TABLET PO SCH (08:59)
[2018-09-08] MEDS: ASPIRIN EC 81 MG TABLET PO SCH (08:59)
[2018-09-08] MEDS: PANTOPRAZOLE 40 MG TABLET PO SCH (08:59)
[2018-09-08] MEDS: FERROUS SULFATE 325 MG TABLET PO SCH (08:59)
[2018-09-08 09:47] LABS: Basophils % 0.3 % (0.0-0.8); Eosinophils # 0.1 10*3/uL (0.0-0.87); Eosinophils % 0.3 % (0.00-10.9); Hematocrit 35.4 VOL% (42.0-52.0); Hemoglobin 11.2 GM/DL (14.0-18.0); Immature Granulocytes % 0.8 %; Immature Granulocytes Absolute 0.12 #; Lymphocytes # 1.9 10*3/uL (1.4-4.0); Mean Corpuscular HGB Conc 31.6 GM/DL (32-36); Mean Corpuscular Hemoglobin 28 PG (27-34); Mean Corpuscular Volume 88.1 FL (87-102); Neutrophils # 11.3 10*3/uL (1.4-7.4); Neutrophils % 78.6 % (38.7-73.9); Platelet Count 351 T/CUMM (130-400); Red Blood Count 4.02 MC/CUMM (3.8-5.5); Red Cell Distribution Width 14.2 % (9.3-17.3); White Blood Count 14.4 T/CUMM (4-12)
[2018-09-08 12:57] VITALS: BP 138/88
== END 2018-09-08 15:30 | disposition home health service (06) | DRG 194 ==
LOC: EDUNIT# → EDBD → N.ED 11:18 → N.ICU 16:42 → SUATTDRO 16:42 → N.ICU 17:50 → N.TELES 08-27 17:50
PROVIDERS: ADMIT Internal Medicine; ATTEND Internal Medicine Geriatric Medicine

== ENCOUNTER 2018-12-02 14:54 | Inpatient (IN) ==
[2018-12-02 16:50] LABS: Basophils # 0.1 10*3/uL (0.0-0.2); Basophils % 0.4 % (0.0-0.8); Eosinophils % 0.1 % (0.00-10.9); Hematocrit 40.4 VOL% (42.0-52.0); Hemoglobin 12.5 GM/DL (14.0-18.0); Immature Granulocytes % 0.3 %; Immature Granulocytes Absolute 0.04 #; Lymphocytes # 0.9 10*3/uL (1.4-4.0); Lymphocytes % 7.6 % (21.2-54.2); Mean Corpuscular HGB Conc 30.9 GM/DL (32-36); Mean Corpuscular Hemoglobin 27 PG (27-34); Mean Corpuscular Volume 86.7 FL (87-102); Mean Platelet Volume 9.9 FL (9.6-12.0); Monocytes # 0.7 10*3/uL (0.11-0.8); Monocytes % 6.2 % (1.7-12.7); Neutrophils # 9.8 10*3/uL (1.4-7.4); Neutrophils % 85.4 % (38.7-73.9); Platelet Count 283 T/CUMM (130-400); Red Blood Count 4.66 MC/CUMM (3.8-5.5); White Blood Count 11.4 T/CUMM (4-12)
[2018-12-02 17:11] LABS: Albumin 4.2 G/DL (3.4-5.0); Bilirubin,Total 0.6 MG/DL (0.2-1.0); Calcium 9.3 MG/DL (8.5-10.1); Osmolality,Calculated 273.8 MOS/KG (273-304); Potassium 3.8 MMOL/L (3.5-5.1); Total Protein 9.1 G/DL (6.4-8.3)
[2018-12-02 17:13] LABS: Apearance,Urine CLEAR (Clear); Bilirubin,Urine Negative (Negative); Blood, Urine Negative (Negative); Glucose,Urine (UA) Negative (Negative); Ketones,Urine Negative (Negative); Nitrite,Urine Negative (Negative); Protein,Urine 100 MG/DL; RBC,Urine 2 /HPF (0-4); Squamous Epithelial Cell,Urine Occasional /HPF (0-10); Urine Color Yellow (Yellow); Urine Specific Gravity 1.015 (1.001-1.035); Urine Urobilinogen < 2.0 EU/DL (0.2-1.0); WBC,Urine 3 /HPF (0-6)
[2018-12-02] MEDS ORDERED: ONDANSETRON 4 MG/2 ML VIAL IV STA (17:29)
[2018-12-02] MEDS ORDERED: SODIUM CHLORIDE 0.9% 1,000 ML IV STA (17:29)
[2018-12-02] MEDS ORDERED: PANTOPRAZOLE 40 MG VIAL IV STA (17:29)
[2018-12-02] MEDS ORDERED: METOCLOPRAMIDE 10 MG/2 ML VIAL IV STA (17:29)
[2018-12-02] MEDS ORDERED: MORPHINE 4 MG/1 ML VIAL IV STA (18:06)
[2018-12-02] MEDS ORDERED: ONDANSETRON 4 MG/2 ML VIAL IV PRN (18:21)
[2018-12-02] MEDS: PIPERACILLIN/TAZOBACTAM 3,375 MG in SODIUM CHLORIDE 0.9% 100 ML IV SCH (19:16)
[2018-12-02] MEDS ORDERED: hydrALAZINE 20 MG/1 ML VIAL IV ONE (19:38)
[2018-12-02] MEDS ORDERED: hydrALAZINE 20 MG/1 ML VIAL ONE (19:41)
[2018-12-02] MEDS: LACTATED RINGERS 1,000 ML IV SCH (21:15)
[2018-12-02] MEDS: PANTOPRAZOLE 40 MG TABLET PO SCH (21:15)
[2018-12-03] MEDS: ACETAMINOPHEN 325 MG TABLET PO PRN (00:31)
[2018-12-03] MEDS: PIPERACILLIN/TAZOBACTAM 3,375 MG in SODIUM CHLORIDE 0.9% 100 ML IV SCH ×3 (03:02→19:44)
[2018-12-03] MEDS: MORPHINE 4 MG/1 ML VIAL IV PRN (06:10)
[2018-12-03 08:59] LABS: Basophils % 0.3 % (0.0-0.8); Eosinophils % 0.2 % (0.00-10.9); Hematocrit 33.6 VOL% (42.0-52.0); Hemoglobin 10.8 GM/DL (14.0-18.0); Immature Granulocytes % 0.5 %; Immature Granulocytes Absolute 0.06 #; Lymphocytes # 1.1 10*3/uL (1.4-4.0); Lymphocytes % 8.3 % (21.2-54.2); Mean Corpuscular HGB Conc 32.1 GM/DL (32-36); Mean Corpuscular Hemoglobin 27 PG (27-34); Mean Corpuscular Volume 85.3 FL (87-102); Monocytes # 1.6 10*3/uL (0.11-0.8); Monocytes % 12.6 % (1.7-12.7); Neutrophils # 9.9 10*3/uL (1.4-7.4); Neutrophils % 78.1 % (38.7-73.9); Platelet Count 228 T/CUMM (130-400); Red Blood Count 3.94 MC/CUMM (3.8-5.5); Red Cell Distribution Width 14.4 % (9.3-17.3); White Blood Count 12.7 T/CUMM (4-12)
[2018-12-03] MEDS: PANTOPRAZOLE 40 MG TABLET PO SCH (09:04)
[2018-12-03 09:28] LABS: Albumin 3.4 G/DL (3.4-5.0); Calcium 8.7 MG/DL (8.5-10.1); Osmolality,Calculated 274.8 MOS/KG (273-304); Potassium 3.6 MMOL/L (3.5-5.1); Total Protein 7.5 G/DL (6.4-8.3)
[2018-12-03] MEDS ORDERED: cefOXitin 2,000 MG in SYRINGE 1 EACH IV ONE (10:57)
[2018-12-03] MEDS ORDERED: TISSUE ADHESIVE 1 EACH APPLICATOR TOP ONE (11:33)
[2018-12-03] MEDS ORDERED: BUPIVACAINE 0.5% 50 ML VIAL ONE (11:33)
[2018-12-03] MEDS ORDERED: LIDOCAINE 1%/EPI INJ 20 ML VIAL ONE (11:33)
[2018-12-03] MEDS ORDERED: SEVOFLURANE 1 UNIT/15 MINUTE INH ONE (12:58)
[2018-12-03] MEDS ORDERED: PROPOFOL 200 MG/20 ML VIAL IV ONE (12:58)
[2018-12-03] MEDS ORDERED: MIDAZOLAM 2 MG/2 ML VIAL ONE (12:58)
[2018-12-03] MEDS ORDERED: DEXAMETHASONE 4 MG/1 ML VIAL ONE (12:59)
[2018-12-03] MEDS ORDERED: ROCURONIUM 100 MG/10 ML VIAL IV ONE (12:59)
[2018-12-03] MEDS ORDERED: PHENYLEPHRINE 1 MG/10 ML SYRINGE IV ONE (12:59)
[2018-12-03] MEDS ORDERED: ETOMIDATE 40 MG/20 ML VIAL IV ONE (12:59)
[2018-12-03] MEDS ORDERED: fentaNYL 100 MCG/2 ML VIAL ONE (12:59)
[2018-12-03] MEDS ORDERED: GLYCOPYRROLATE 0.4 MG/2 ML VIAL ONE (12:59)
[2018-12-03] MEDS ORDERED: hydrALAZINE 20 MG/1 ML VIAL ONE (12:59)
[2018-12-03] MEDS ORDERED: NEOSTIGMINE 10 MG/10 ML VIAL ONE (12:59)
[2018-12-03] MEDS: MORPHINE 10 MG/1 ML VIAL IV PRN ×2 (13:30→13:40)
[2018-12-03] MEDS ORDERED: MORPHINE 10 MG/1 ML VIAL ONE (13:31)
[2018-12-03] MEDS ORDERED: ONDANSETRON 4 MG/2 ML VIAL ONE (13:31)
[2018-12-03] MEDS ORDERED: ONDANSETRON 4 MG/2 ML VIAL IV PRN (13:31)
[2018-12-03] MEDS: LACTATED RINGERS 1,000 ML IV SCH (19:44)
[2018-12-03] MEDS: ATORVASTATIN 40 MG TABLET PO SCH (20:52)
[2018-12-03] MEDS: CARVEDILOL 25 MG TABLET PO SCH (20:53)
[2018-12-04] MEDS: LACTATED RINGERS 1,000 ML IV SCH ×2 (02:07→19:23)
[2018-12-04] MEDS: PIPERACILLIN/TAZOBACTAM 3,375 MG in SODIUM CHLORIDE 0.9% 100 ML IV SCH ×3 (03:14→19:28)
[2018-12-04] MEDS: MORPHINE 4 MG/1 ML VIAL IV PRN (04:03)
[2018-12-04] MEDS ORDERED: hydrALAZINE 20 MG/1 ML VIAL IV PRN (05:17)
[2018-12-04 05:36] LABS: Basophils % 0.1 % (0.0-0.8); Hematocrit 32.5 VOL% (42.0-52.0); Hemoglobin 10.3 GM/DL (14.0-18.0); Immature Granulocytes % 0.7 %; Immature Granulocytes Absolute 0.11 #; Lymphocytes # 0.9 10*3/uL (1.4-4.0); Lymphocytes % 5.8 % (21.2-54.2); Mean Corpuscular HGB Conc 31.7 GM/DL (32-36); Mean Corpuscular Hemoglobin 27 PG (27-34); Mean Corpuscular Volume 85.5 FL (87-102); Mean Platelet Volume 10.2 FL (9.6-12.0); Monocytes # 1.5 10*3/uL (0.11-0.8); Monocytes % 9.7 % (1.7-12.7); Neutrophils # 13.1 10*3/uL (1.4-7.4); Neutrophils % 83.7 % (38.7-73.9); Platelet Count 224 T/CUMM (130-400); Red Cell Distribution Width 14.2 % (9.3-17.3); White Blood Count 15.7 T/CUMM (4-12)
[2018-12-04 05:54] LABS: Albumin 3.1 G/DL (3.4-5.0); Bilirubin,Total 1.2 MG/DL (0.2-1.0); Calcium 8.4 MG/DL (8.5-10.1); Potassium 3.8 MMOL/L (3.5-5.1); Total Protein 7.6 G/DL (6.4-8.3)
[2018-12-04] MEDS: PANTOPRAZOLE 40 MG TABLET PO SCH (10:05)
[2018-12-04] MEDS: FUROSEMIDE 40 MG TABLET PO SCH (10:06)
[2018-12-04] MEDS: amLODIPine 10 MG TABLET PO SCH (10:06)
[2018-12-04] MEDS: CARVEDILOL 25 MG TABLET PO SCH ×2 (10:06→20:22)
[2018-12-04] MEDS: FERROUS SULFATE 325 MG TABLET PO SCH (10:07)
[2018-12-04] MEDS ORDERED: cloNIDine 0.1 MG TABLET PO PRN (13:38)
[2018-12-04] MEDS: ATORVASTATIN 40 MG TABLET PO SCH (20:22)
[2018-12-04] MEDS: ACETAMINOPHEN 325 MG TABLET PO PRN (20:27)
[2018-12-05] MEDS: LACTATED RINGERS 1,000 ML IV SCH ×2 (00:55→18:48)
[2018-12-05] MEDS: PIPERACILLIN/TAZOBACTAM 3,375 MG in SODIUM CHLORIDE 0.9% 100 ML IV SCH ×3 (02:43→18:51)
[2018-12-05 05:40] LABS: Basophils % 0.4 % (0.0-0.8); Eosinophils # 0.1 10*3/uL (0.0-0.87); Eosinophils % 0.8 % (0.00-10.9); Hematocrit 29.4 VOL% (42.0-52.0); Hemoglobin 9.3 GM/DL (14.0-18.0); Immature Granulocytes % 0.5 %; Immature Granulocytes Absolute 0.05 #; Lymphocytes # 1.5 10*3/uL (1.4-4.0); Mean Corpuscular HGB Conc 31.6 GM/DL (32-36); Mean Corpuscular Hemoglobin 27 PG (27-34); Mean Corpuscular Volume 86.5 FL (87-102); Mean Platelet Volume 10.3 FL (9.6-12.0); Monocytes # 1.1 10*3/uL (0.11-0.8); Monocytes % 11.3 % (1.7-12.7); Neutrophils # 6.6 10*3/uL (1.4-7.4); Platelet Count 203 T/CUMM (130-400); Red Cell Distribution Width 14.2 % (9.3-17.3); White Blood Count 9.3 T/CUMM (4-12)
[2018-12-05] MEDS: DOCUSATE SODIUM 100 MG CAPSULE PO SCH ×2 (09:49→20:27)
[2018-12-05] MEDS: PANTOPRAZOLE 40 MG TABLET PO SCH (09:49)
[2018-12-05] MEDS: FERROUS SULFATE 325 MG TABLET PO SCH (09:49)
[2018-12-05] MEDS: CARVEDILOL 25 MG TABLET PO SCH ×2 (09:50→20:27)
[2018-12-05] MEDS: FUROSEMIDE 40 MG TABLET PO SCH (09:50)
[2018-12-05] MEDS: amLODIPine 10 MG TABLET PO SCH (09:50)
[2018-12-05] MEDS: ATORVASTATIN 40 MG TABLET PO SCH (20:27)
[2018-12-06] MEDS: PIPERACILLIN/TAZOBACTAM 3,375 MG in SODIUM CHLORIDE 0.9% 100 ML IV SCH ×2 (01:56→10:05)
[2018-12-06] MEDS: LACTATED RINGERS 1,000 ML IV SCH (01:57)
[2018-12-06] MEDS: FERROUS SULFATE 325 MG TABLET PO SCH (09:14)
[2018-12-06] MEDS: DOCUSATE SODIUM 100 MG CAPSULE PO SCH (09:15)
[2018-12-06] MEDS: PANTOPRAZOLE 40 MG TABLET PO SCH (09:15)
[2018-12-06] MEDS: CARVEDILOL 25 MG TABLET PO SCH (09:15)
[2018-12-06] MEDS: FUROSEMIDE 40 MG TABLET PO SCH (09:15)
[2018-12-06] MEDS: amLODIPine 10 MG TABLET PO SCH (09:15)
[2018-12-06] MEDS ORDERED: ASPIRIN EC 81 MG TABLET PO SCH (11:00)
[2018-12-06 11:34] VITALS: BP 172/96
== END 2018-12-06 13:47 | disposition home or self-care (01) | DRG 263 ==
LOC: N.EDINP 14:54 → N.ED 14:54 → N.3E 19:27
PROVIDERS: ADMIT Surgery; ATTEND Surgery
PROC: LAPCHOL (2018-12-03 12:00)

== ENCOUNTER 2022-08-06 11:44 | Inpatient (IN) ==
[2022-08-06 12:37] LABS: Basophils % 0.1 % (0.0-0.8); Eosinophils % 0.1 % (0.00-10.9); Immature Granulocytes % 0.4 %; Immature Granulocytes Absolute 0.04 #; Lymphocytes # 1.1 10*3/uL (1.4-4.0); Mean Corpuscular HGB Conc 25.2 GM/DL (32-36); Mean Corpuscular Volume 71.6 FL (87-102); Mean Platelet Volume 11.3 FL (9.6-12.0); Monocytes % 22.1 % (1.7-12.7); NRBC # 0.12 10*3/uL; Neutrophils % 65.3 % (38.7-73.9); Platelet Count 294 T/CUMM (130-400); Red Blood Count 2.11 MC/CUMM (3.8-5.5); Red Cell Distribution Width 20.7 % (9.3-17.3)
[2022-08-06 12:40] LABS: Hematocrit 15.1 VOL% (42.0-52.0); Hemoglobin 3.8 GM/DL (14.0-18.0)
[2022-08-06] MEDS ORDERED: FUROSEMIDE 40 MG/4 ML VIAL IV STA (12:53)
[2022-08-06 12:58] LABS: Albumin 3.5 G/DL (3.4-5.0); Bilirubin,Total 3.2 MG/DL (0.20-1.00); Calcium 9.4 MG/DL (8.5-10.1); Osmolality,Calculated 282.7 MOS/KG (273-304); Potassium 4.1 MMOL/L (3.5-5.1); Total Protein 7.2 G/DL (6.4-8.2)
[2022-08-06 13:22] LABS: % Iron Saturation 2.8 % (18-50); Ferritin 7.1 ng/mL (26-388)
[2022-08-06 13:26] LABS: Folate 20.42 NG/ML (5.38-24.0); Vitamin B12 > 2000 PG/ML (211-911)
[2022-08-06 13:29] LABS: Eosinophils 1 % (0-10); Lymphocytes 12 % (20-55); Nucleated Red Blood Cells 2 /100 WBC (0-5); Platelet Estimate Adequate; Total Cells Counted 100
[2022-08-06 13:30] LABS: INR 1.5; Partial Thromboplastin Time 27.1 SECS (23.7-32.9)
[2022-08-06 13:30] LABS: Anisocytosis 1+; Hypochromia 2+; Macrocytosis 1+; Microcytosis 1+; Polychromasia 1+
[2022-08-06 13:31] LABS: Tear Drop Cells Slight
[2022-08-06 14:09] LABS: Hepatitis B Core IgM Quant 0.11 Index; Hepatitis B Surface Ag Quant < 0.10 Index; Hepatitis B Surface Ag Result Non-Reactive (NonReactive); Hepatitis C Virus Ab Quant 0.03 Index; Hepatitis C Virus Ab Result Non-Reactive (NonReactive)
[2022-08-06] MEDS ORDERED: ACETAMINOPHEN 325 MG TABLET PO PRN ×2 (14:40→15:44)
[2022-08-06] MEDS ORDERED: ONDANSETRON 4 MG/2 ML VIAL IV PRN ×2 (14:40→15:44)
[2022-08-06] MEDS ORDERED: SODIUM CHLORIDE 0.9% 1,000 ML IV PRN ×2 (14:42→15:44)
[2022-08-06] MEDS ORDERED: SODIUM CHLORIDE 0.9% 1,000 ML IV SCH (15:44)
[2022-08-06] MEDS ORDERED: niCARdipine INJ 50 MG in SODIUM CHLORIDE 0.9% 230 ML IV PRN (16:13)
[2022-08-06] MEDS: MORPHINE 2 MG/1 ML SYRINGE IV PRN (19:50)
[2022-08-06] MEDS ORDERED: DOCUSATE SODIUM 100 MG CAPSULE PO SCH (21:00)
[2022-08-06] MEDS: cloNIDine 0.1 MG TABLET PO SCH (21:23)
[2022-08-06] MEDS: FUROSEMIDE 40 MG/4 ML VIAL IV SCH (21:23)
[2022-08-06] MEDS: DOCUSATE SODIUM 100 MG CAPSULE PO SCH (21:23)
[2022-08-06] MEDS: PANTOPRAZOLE 40 MG TABLET PO SCH (21:23)
[2022-08-06] MEDS: LATANOPROST 0.005% OPH SOLN 2.5 ML BOTTLE LEFT EYE SCH (21:26)
[2022-08-06] MEDS: BRIMONIDINE 0.2% OPH SOLN 5 ML BOTTLE LEFT EYE SCH (21:26)
[2022-08-06] MEDS: ATORVASTATIN 40 MG TABLET PO SCH (21:40)
[2022-08-07 01:27] LABS: Basophils # 0.1 10*3/uL (0.0-0.2); Basophils % 0.7 % (0.0-0.8); Eosinophils # 0.1 10*3/uL (0.0-0.87); Eosinophils % 0.7 % (0.00-10.9); Hematocrit 22.8 VOL% (42.0-52.0); Hemoglobin 6.6 GM/DL (14.0-18.0); Immature Granulocytes % 0.7 %; Immature Granulocytes Absolute 0.07 #; Lymphocytes # 0.9 10*3/uL (1.4-4.0); Lymphocytes % 9.3 % (21.2-54.2); Mean Corpuscular HGB Conc 28.9 GM/DL (32-36); Mean Corpuscular Volume 69.9 FL (87-102); Mean Platelet Volume 10.6 FL (9.6-12.0); Monocytes # 1.6 10*3/uL (0.11-0.8); Monocytes % 16.8 % (1.7-12.7); NRBC # 0.07 10*3/uL; Neutrophils % 71.8 % (38.7-73.9); Platelet Count 264 T/CUMM (130-400); Red Blood Count 3.26 MC/CUMM (3.8-5.5); Red Cell Distribution Width 21.6 % (9.3-17.3); White Blood Count 9.8 T/CUMM (4-12)
[2022-08-07 01:41] LABS: Calcium 8.6 MG/DL (8.5-10.1); Osmolality,Calculated 277.1 MOS/KG (273-304); Potassium 3.2 MMOL/L (3.5-5.1)
[2022-08-07 01:57] LABS: Eosinophils 1 % (0-10); Lymphocytes 5 % (20-55); Nucleated Red Blood Cells 1 /100 WBC (0-5); Platelet Estimate Adequate; Total Cells Counted 100
[2022-08-07 01:58] LABS: Hypochromia 2+; Microcytosis 2+; Polychromasia Few
[2022-08-07] MEDS: MORPHINE 2 MG/1 ML SYRINGE IV PRN ×2 (02:00→20:56)
[2022-08-07 05:52] LABS: Hematocrit 25.6 VOL% (42.0-52.0); Hemoglobin 7.2 GM/DL (14.0-18.0)
[2022-08-07] MEDS: IRON (CARBONYL)/VIT C/B12/FA TABLET PO SCH (08:45)
[2022-08-07] MEDS: amLODIPine 10 MG TABLET PO SCH (08:46)
[2022-08-07] MEDS: ISOSORBIDE MONONITRATE 60 MG TABLET PO SCH (08:46)
[2022-08-07] MEDS: FUROSEMIDE 40 MG/4 ML VIAL IV SCH ×2 (08:46→20:55)
[2022-08-07] MEDS: CHOLECALCIFEROL 5,000 UNIT TABLET PO SCH (08:46)
[2022-08-07] MEDS: PANTOPRAZOLE 40 MG TABLET PO SCH ×2 (08:46→20:55)
[2022-08-07] MEDS: carvediloL 25 MG TABLET PO SCH (08:46)
[2022-08-07] MEDS: cloNIDine 0.1 MG TABLET PO SCH ×2 (08:46→20:54)
[2022-08-07] MEDS: DOCUSATE SODIUM 100 MG CAPSULE PO SCH ×2 (08:46→20:55)
[2022-08-07] MEDS: BRIMONIDINE 0.2% OPH SOLN 5 ML BOTTLE LEFT EYE SCH ×2 (08:47→20:54)
[2022-08-07] MEDS ORDERED: PANTOPRAZOLE 40 MG TABLET PO SCH (09:00)
[2022-08-07] MEDS: LATANOPROST 0.005% OPH SOLN 2.5 ML BOTTLE LEFT EYE SCH (20:55)
[2022-08-07] MEDS: ATORVASTATIN 40 MG TABLET PO SCH (20:55)
[2022-08-08] MEDS: BRIMONIDINE 0.2% OPH SOLN 5 ML BOTTLE LEFT EYE SCH ×2 (08:51→20:46)
[2022-08-08] MEDS: ISOSORBIDE MONONITRATE 60 MG TABLET PO SCH (08:52)
[2022-08-08] MEDS: IRON (CARBONYL)/VIT C/B12/FA TABLET PO SCH (08:52)
[2022-08-08] MEDS: carvediloL 25 MG TABLET PO SCH (08:52)
[2022-08-08] MEDS: amLODIPine 10 MG TABLET PO SCH (08:52)
[2022-08-08] MEDS: DOCUSATE SODIUM 100 MG CAPSULE PO SCH ×2 (08:52→20:48)
[2022-08-08] MEDS: cloNIDine 0.1 MG TABLET PO SCH ×2 (08:52→20:45)
[2022-08-08] MEDS: PANTOPRAZOLE 40 MG TABLET PO SCH ×2 (08:53→20:46)
[2022-08-08] MEDS: CHOLECALCIFEROL 5,000 UNIT TABLET PO SCH (08:53)
[2022-08-08] MEDS: FUROSEMIDE 40 MG/4 ML VIAL IV SCH ×2 (08:57→20:45)
[2022-08-08 09:08] LABS: Basophils # 0.1 10*3/uL (0.0-0.2); Basophils % 0.7 % (0.0-0.8); Eosinophils # 0.2 10*3/uL (0.0-0.87); Eosinophils % 1.6 % (0.00-10.9); Hematocrit 23.7 VOL% (42.0-52.0); Hemoglobin 6.8 GM/DL (14.0-18.0); Immature Granulocytes % 0.3 %; Immature Granulocytes Absolute 0.03 #; Lymphocytes # 0.9 10*3/uL (1.4-4.0); Lymphocytes % 8.9 % (21.2-54.2); Mean Corpuscular HGB Conc 28.7 GM/DL (32-36); Mean Corpuscular Volume 70.5 FL (87-102); Mean Platelet Volume 11.1 FL (9.6-12.0); Monocytes # 1.5 10*3/uL (0.11-0.8); Monocytes % 14.8 % (1.7-12.7); NRBC # 0.05 10*3/uL; Neutrophils % 73.7 % (38.7-73.9); Platelet Count 239 T/CUMM (130-400); Red Blood Count 3.36 MC/CUMM (3.8-5.5); Red Cell Distribution Width 21.7 % (9.3-17.3); White Blood Count 9.8 T/CUMM (4-12)
[2022-08-08] MEDS ORDERED: BISACODYL 10 MG SUPP RECTAL PRN (09:09)
[2022-08-08 09:24] LABS: Albumin 3.2 G/DL (3.4-5.0); Bilirubin,Direct 0.62 MG/DL (0.0-0.20); Bilirubin,Indirect 2.2 MG/DL (0.0-1.0); Bilirubin,Total 2.8 MG/DL (0.20-1.00); Calcium 8.8 MG/DL (8.5-10.1); Osmolality,Calculated 282.7 MOS/KG (273-304); Total Protein 6.9 G/DL (6.4-8.2)
[2022-08-08 09:41] LABS: Acanthocytes Few; Anisocytosis 2+; Ovalocytes Few; Platelet Estimate Normal; Poikilocytosis 1+
[2022-08-08 09:42] LABS: Hypochromia Slight; Tear Drop Cells Few
[2022-08-08] MEDS ORDERED: MAGNESIUM SULF RIDER 4 GM/100 ML PREMIX IV PRN (11:03)
[2022-08-08] MEDS ORDERED: MAGNESIUM SULF RIDER 2 GM/50 ML PREMIX IV PRN (11:03)
[2022-08-08] MEDS ORDERED: POTASSIUM CHLORIDE RIDER 10 MEQ/100 ML PREMIX IV PRN (11:03)
[2022-08-08] MEDS ORDERED: SODIUM CHLORIDE 0.9% 1,000 ML IV PRN (15:18)
[2022-08-08] MEDS: ATORVASTATIN 40 MG TABLET PO SCH (20:45)
[2022-08-08] MEDS: LATANOPROST 0.005% OPH SOLN 2.5 ML BOTTLE LEFT EYE SCH (20:46)
[2022-08-09 05:29] LABS: Basophils # 0.1 10*3/uL (0.0-0.2); Basophils % 0.9 % (0.0-0.8); Eosinophils # 0.3 10*3/uL (0.0-0.87); Hematocrit 24.4 VOL% (42.0-52.0); Hemoglobin 7.1 GM/DL (14.0-18.0); Immature Granulocytes % 0.5 %; Immature Granulocytes Absolute 0.05 #; Lymphocytes # 1.1 10*3/uL (1.4-4.0); Lymphocytes % 11.3 % (21.2-54.2); Mean Corpuscular HGB Conc 29.1 GM/DL (32-36); Mean Corpuscular Volume 72.8 FL (87-102); Mean Platelet Volume 11.3 FL (9.6-12.0); Monocytes # 1.8 10*3/uL (0.11-0.8); Monocytes % 19.6 % (1.7-12.7); NRBC # 0.03 10*3/uL; Neutrophils % 64.7 % (38.7-73.9); Platelet Count 229 T/CUMM (130-400); Red Blood Count 3.35 MC/CUMM (3.8-5.5); White Blood Count 9.3 T/CUMM (4-12)
[2022-08-09 05:49] LABS: Albumin 2.9 G/DL (3.4-5.0); Bilirubin,Direct 0.52 MG/DL (0.0-0.20); Bilirubin,Indirect 1.4 MG/DL (0.0-1.0); Bilirubin,Total 1.9 MG/DL (0.20-1.00); Calcium 8.5 MG/DL (8.5-10.1); Osmolality,Calculated 278.7 MOS/KG (273-304); Potassium 2.9 MMOL/L (3.5-5.1); Total Protein 6.6 G/DL (6.4-8.2)
[2022-08-09 06:44] LABS: Eosinophils 4 % (0-10); Hypochromia Slight; Lymphocytes 14 % (20-55); Microcytosis Slight; Platelet Estimate Adequate; Total Cells Counted 100
[2022-08-09] MEDS: carvediloL 25 MG TABLET PO SCH (10:08)
[2022-08-09] MEDS: DOCUSATE SODIUM 100 MG CAPSULE PO SCH ×2 (10:08→22:04)
[2022-08-09] MEDS: amLODIPine 10 MG TABLET PO SCH (10:08)
[2022-08-09] MEDS: cloNIDine 0.1 MG TABLET PO SCH ×2 (10:08→22:03)
[2022-08-09] MEDS: ISOSORBIDE MONONITRATE 60 MG TABLET PO SCH (10:08)
[2022-08-09] MEDS: PANTOPRAZOLE 40 MG TABLET PO SCH ×2 (10:08→22:03)
[2022-08-09] MEDS: IRON (CARBONYL)/VIT C/B12/FA TABLET PO SCH (10:08)
[2022-08-09] MEDS: CHOLECALCIFEROL 5,000 UNIT TABLET PO SCH (10:09)
[2022-08-09] MEDS: FUROSEMIDE 40 MG/4 ML VIAL IV SCH ×2 (10:09→22:03)
[2022-08-09] MEDS: BRIMONIDINE 0.2% OPH SOLN 5 ML BOTTLE LEFT EYE SCH ×2 (10:09→22:03)
[2022-08-09] MEDS: ATORVASTATIN 40 MG TABLET PO SCH (22:03)
[2022-08-09] MEDS: LATANOPROST 0.005% OPH SOLN 2.5 ML BOTTLE LEFT EYE SCH (22:04)
[2022-08-10 05:12] LABS: Basophils # 0.1 10*3/uL (0.0-0.2); Basophils % 0.9 % (0.0-0.8); Eosinophils # 0.5 10*3/uL (0.0-0.87); Eosinophils % 4.9 % (0.00-10.9); Hemoglobin 7.8 GM/DL (14.0-18.0); Immature Granulocytes % 0.6 %; Immature Granulocytes Absolute 0.06 #; Lymphocytes # 1.1 10*3/uL (1.4-4.0); Lymphocytes % 12.3 % (21.2-54.2); Mean Corpuscular HGB Conc 28.9 GM/DL (32-36); Mean Corpuscular Volume 73.6 FL (87-102); Mean Platelet Volume 10.7 FL (9.6-12.0); Monocytes # 1.5 10*3/uL (0.11-0.8); Monocytes % 16.2 % (1.7-12.7); Neutrophils % 65.1 % (38.7-73.9); Platelet Count 245 T/CUMM (130-400); Red Blood Count 3.67 MC/CUMM (3.8-5.5); Red Cell Distribution Width 22.7 % (9.3-17.3); White Blood Count 9.3 T/CUMM (4-12)
[2022-08-10 05:45] LABS: Albumin 3.1 G/DL (3.4-5.0); Bilirubin,Direct 0.59 MG/DL (0.0-0.20); Bilirubin,Indirect 0.9 MG/DL (0.0-1.0); Bilirubin,Total 1.5 MG/DL (0.20-1.00); Calcium 8.9 MG/DL (8.5-10.1); Osmolality,Calculated 275.1 MOS/KG (273-304); Potassium 3.2 MMOL/L (3.5-5.1); Total Protein 7.1 G/DL (6.4-8.2)
[2022-08-10 05:57] LABS: Eosinophils 4 % (0-10); Lymphocytes 13 % (20-55); Platelet Estimate Adequate; Total Cells Counted 100
[2022-08-10 05:58] LABS: Hypochromia 1+; Microcytosis 1+
[2022-08-10] MEDS ORDERED: POTASSIUM CHLORIDE 20 MEQ TABLET PO PRN (08:02)
[2022-08-10] MEDS: DOCUSATE SODIUM 100 MG CAPSULE PO SCH ×2 (08:40→21:32)
[2022-08-10] MEDS: POTASSIUM CHLORIDE 20 MEQ TABLET PO PRN ×4 (08:40→16:34)
[2022-08-10] MEDS: IRON (CARBONYL)/VIT C/B12/FA TABLET PO SCH (08:40)
[2022-08-10] MEDS: PANTOPRAZOLE 40 MG TABLET PO SCH ×2 (08:41→21:30)
[2022-08-10] MEDS: carvediloL 25 MG TABLET PO SCH (08:41)
[2022-08-10] MEDS: ISOSORBIDE MONONITRATE 60 MG TABLET PO SCH (08:41)
[2022-08-10] MEDS: CHOLECALCIFEROL 5,000 UNIT TABLET PO SCH (08:41)
[2022-08-10] MEDS: FUROSEMIDE 40 MG/4 ML VIAL IV SCH ×2 (08:41→21:30)
[2022-08-10] MEDS: amLODIPine 10 MG TABLET PO SCH (08:41)
[2022-08-10] MEDS: BRIMONIDINE 0.2% OPH SOLN 5 ML BOTTLE LEFT EYE SCH ×2 (08:48→21:32)
[2022-08-10] MEDS: cloNIDine 0.1 MG TABLET PO SCH ×2 (08:50→21:30)
[2022-08-10] MEDS: ATORVASTATIN 40 MG TABLET PO SCH (21:30)
[2022-08-10] MEDS: LATANOPROST 0.005% OPH SOLN 2.5 ML BOTTLE LEFT EYE SCH (21:32)
[2022-08-11 05:25] LABS: Basophils # 0.1 10*3/uL (0.0-0.2); Basophils % 1.2 % (0.0-0.8); Eosinophils # 0.5 10*3/uL (0.0-0.87); Eosinophils % 5.1 % (0.00-10.9); Hematocrit 29.7 VOL% (42.0-52.0); Hemoglobin 8.6 GM/DL (14.0-18.0); Immature Granulocytes % 0.4 %; Immature Granulocytes Absolute 0.04 #; Lymphocytes # 1.4 10*3/uL (1.4-4.0); Lymphocytes % 15.3 % (21.2-54.2); Mean Corpuscular Volume 74.4 FL (87-102); Mean Platelet Volume 10.8 FL (9.6-12.0); Monocytes # 1.3 10*3/uL (0.11-0.8); Monocytes % 13.9 % (1.7-12.7); Neutrophils % 64.1 % (38.7-73.9); Platelet Count 267 T/CUMM (130-400); Red Blood Count 3.99 MC/CUMM (3.8-5.5); Red Cell Distribution Width 23.7 % (9.3-17.3); White Blood Count 9.4 T/CUMM (4-12)
[2022-08-11 05:49] LABS: Albumin 3.3 G/DL (3.4-5.0); Bilirubin,Direct 0.5 MG/DL (0.0-0.20); Bilirubin,Indirect 0.8 MG/DL (0.0-1.0); Bilirubin,Total 1.3 MG/DL (0.20-1.00); Calcium 9.7 MG/DL (8.5-10.1); Potassium 3.5 MMOL/L (3.5-5.1); Total Protein 7.8 G/DL (6.4-8.2)
[2022-08-11] MEDS: FUROSEMIDE 40 MG/4 ML VIAL IV SCH ×2 (09:05→21:15)
[2022-08-11] MEDS: BRIMONIDINE 0.2% OPH SOLN 5 ML BOTTLE LEFT EYE SCH ×2 (09:06→21:15)
[2022-08-11] MEDS ORDERED: LACTATED RINGERS 1,000 ML IV SCH (12:36)
[2022-08-11] MEDS ORDERED: ETOMIDATE 20 MG/10 ML VIAL IV ONE (13:01)
[2022-08-11] MEDS ORDERED: propofoL 200 MG/20 ML VIAL IV ONE (13:01)
[2022-08-11] MEDS ORDERED: LIDOCAINE 2% 5 ML VIAL ONE (13:01)
[2022-08-11] MEDS: amLODIPine 10 MG TABLET PO SCH (14:20)
[2022-08-11] MEDS: carvediloL 25 MG TABLET PO SCH (14:20)
[2022-08-11] MEDS: PANTOPRAZOLE 40 MG TABLET PO SCH ×2 (14:20→21:15)
[2022-08-11] MEDS: IRON (CARBONYL)/VIT C/B12/FA TABLET PO SCH (14:20)
[2022-08-11] MEDS: cloNIDine 0.1 MG TABLET PO SCH ×2 (14:20→21:15)
[2022-08-11] MEDS: ISOSORBIDE MONONITRATE 60 MG TABLET PO SCH (14:20)
[2022-08-11] MEDS: CHOLECALCIFEROL 5,000 UNIT TABLET PO SCH (14:21)
[2022-08-11] MEDS: DOCUSATE SODIUM 100 MG CAPSULE PO SCH ×2 (14:21→21:15)
[2022-08-11] MEDS ORDERED: hydrALAZINE 20 MG/1 ML VIAL IV PRN (15:04)
[2022-08-11] MEDS: LATANOPROST 0.005% OPH SOLN 2.5 ML BOTTLE LEFT EYE SCH (21:16)
[2022-08-12 06:26] LABS: Albumin 3.4 G/DL (3.4-5.0); Bilirubin,Direct 0.6 MG/DL (0.0-0.20); Bilirubin,Indirect 0.9 MG/DL (0.0-1.0); Bilirubin,Total 1.5 MG/DL (0.20-1.00); Calcium 9.4 MG/DL (8.5-10.1); Osmolality,Calculated 272.2 MOS/KG (273-304); Potassium 3.5 MMOL/L (3.5-5.1); Total Protein 7.7 G/DL (6.4-8.2)
[2022-08-12 06:29] LABS: Basophils # 0.1 10*3/uL (0.0-0.2); Basophils % 0.8 % (0.0-0.8); Eosinophils # 0.4 10*3/uL (0.0-0.87); Eosinophils % 3.8 % (0.00-10.9); Hemoglobin 8.8 GM/DL (14.0-18.0); Immature Granulocytes % 0.4 %; Immature Granulocytes Absolute 0.04 #; Lymphocytes # 1.2 10*3/uL (1.4-4.0); Lymphocytes % 12.7 % (21.2-54.2); Mean Corpuscular HGB Conc 28.4 GM/DL (32-36); Mean Corpuscular Volume 75.1 FL (87-102); Mean Platelet Volume 11.1 FL (9.6-12.0); Monocytes # 1.4 10*3/uL (0.11-0.8); Neutrophils % 67.3 % (38.7-73.9); Platelet Count 243 T/CUMM (130-400); Red Blood Count 4.13 MC/CUMM (3.8-5.5); Red Cell Distribution Width 24.6 % (9.3-17.3); White Blood Count 9.6 T/CUMM (4-12)
[2022-08-12 07:12] LABS: Hypochromia 1+; Microcytosis 1+
[2022-08-12 07:13] LABS: Ovalocytes Slight; Platelet Estimate Normal; Polychromasia Slight
[2022-08-12] MEDS: BRIMONIDINE 0.2% OPH SOLN 5 ML BOTTLE LEFT EYE SCH (08:55)
[2022-08-12] MEDS: DOCUSATE SODIUM 100 MG CAPSULE PO SCH (08:56)
[2022-08-12] MEDS: CHOLECALCIFEROL 5,000 UNIT TABLET PO SCH (08:56)
[2022-08-12] MEDS: IRON (CARBONYL)/VIT C/B12/FA TABLET PO SCH (08:56)
[2022-08-12] MEDS: PANTOPRAZOLE 40 MG TABLET PO SCH (08:56)
[2022-08-12] MEDS: ISOSORBIDE MONONITRATE 60 MG TABLET PO SCH (08:56)
[2022-08-12] MEDS: amLODIPine 10 MG TABLET PO SCH (08:56)
[2022-08-12] MEDS: cloNIDine 0.1 MG TABLET PO SCH (08:56)
[2022-08-12] MEDS: carvediloL 25 MG TABLET PO SCH (08:56)
[2022-08-12] MEDS: FUROSEMIDE 40 MG/4 ML VIAL IV SCH (08:57)
[2022-08-12 11:47] VITALS: BP 109/60
== END 2022-08-12 15:20 | disposition home health service (06) | DRG 194 ==
LOC: N.EDINP 11:44 → N.ED 11:44 → SUATTDRO 12:54 → N.ICU 14:58 → N.5E 08-07 14:10
PROVIDERS: ADMIT Family Medicine; ATTEND Family Medicine

== ENCOUNTER 2022-10-03 09:13 | Inpatient (IN) ==
[2022-10-03] MEDS ORDERED: SODIUM CHLORIDE 0.9% 2,000 ML IV STA (09:46)
[2022-10-03 10:08] LABS: Basophils % 0.2 % (0.0-0.8); Eosinophils % 0.1 % (0.00-10.9); Immature Granulocytes % 0.5 %; Immature Granulocytes Absolute 0.06 #; Lymphocytes # 1.1 10*3/uL (1.4-4.0); Lymphocytes % 9.9 % (21.2-54.2); Mean Corpuscular Volume 69.8 FL (87-102); Mean Platelet Volume 9.9 FL (9.6-12.0); Monocytes # 1.3 10*3/uL (0.11-0.8); Monocytes % 11.5 % (1.7-12.7); NRBC # 0.04 10*3/uL; Neutrophils % 77.8 % (38.7-73.9); Platelet Count 266 T/CUMM (130-400); Red Blood Count 2.32 MC/CUMM (3.8-5.5); Red Cell Distribution Width 18.9 % (9.3-17.3); White Blood Count 11.5 T/CUMM (4-12)
[2022-10-03 10:15] LABS: Hemoglobin 4.7 GM/DL (14.0-18.0)
[2022-10-03] MEDS ORDERED: SODIUM CHLORIDE 0.9% 1,000 ML IV PRN ×2 (10:15→17:07)
[2022-10-03 10:16] LABS: Hematocrit 16.2 VOL% (42.0-52.0)
[2022-10-03 10:21] LABS: INR 1.1; PT Patient Result 11.9 SECS (10.1-12.1); Partial Thromboplastin Time 20.1 SECS (23.7-32.9)
[2022-10-03 10:32] LABS: Albumin 3.9 G/DL (3.4-5.0); Bilirubin,Total 1.2 MG/DL (0.20-1.00); Calcium 9.6 MG/DL (8.5-10.1); Osmolality,Calculated 286.7 MOS/KG (273-304); Potassium 3.9 MMOL/L (3.5-5.1); Total Protein 8.2 G/DL (6.4-8.2)
[2022-10-03 10:51] LABS: Anisocytosis 2+; Hypochromia Slight; Ovalocytes Few; Platelet Estimate Normal
[2022-10-03] MEDS ORDERED: ONDANSETRON 4 MG/2 ML VIAL IV PRN (11:47)
[2022-10-03] MEDS ORDERED: ACETAMINOPHEN 325 MG TABLET PO PRN (11:47)
[2022-10-03] MEDS: SODIUM CHLORIDE 0.9% 1,000 ML IV SCH ×2 (17:36→23:19)
[2022-10-03] MEDS: PANTOPRAZOLE 40 MG VIAL IV SCH (17:39)
[2022-10-03] MEDS: DOCUSATE SODIUM 100 MG CAPSULE PO SCH (20:15)
[2022-10-03] MEDS: TIMOLOL 0.5% OPH SOLN 5 ML BOTTLE LEFT EYE SCH (20:16)
[2022-10-03] MEDS: ATORVASTATIN 40 MG TABLET PO SCH (20:17)
[2022-10-03] MEDS: LATANOPROST 0.005% OPH SOLN 2.5 ML BOTTLE LEFT EYE SCH (20:17)
[2022-10-03] MEDS: BRIMONIDINE 0.2% OPH SOLN 5 ML BOTTLE LEFT EYE SCH (20:17)
[2022-10-03] MEDS ORDERED: cloNIDine 0.1 MG TABLET PO SCH (23:30)
[2022-10-04] MEDS: SODIUM CHLORIDE 0.9% 1,000 ML IV SCH ×3 (03:25→20:15)
[2022-10-04 05:35] LABS: Basophils % 0.3 % (0.0-0.8); Eosinophils # 0.1 10*3/uL (0.0-0.87); Eosinophils % 0.9 % (0.00-10.9); Hematocrit 22.3 VOL% (42.0-52.0); Hemoglobin 6.9 GM/DL (14.0-18.0); Immature Granulocytes % 0.5 %; Immature Granulocytes Absolute 0.06 #; Lymphocytes # 0.7 10*3/uL (1.4-4.0); Lymphocytes % 5.9 % (21.2-54.2); Mean Corpuscular HGB Conc 30.9 GM/DL (32-36); Mean Corpuscular Volume 79.1 FL (87-102); Mean Platelet Volume 9.8 FL (9.6-12.0); Monocytes # 1.7 10*3/uL (0.11-0.8); Monocytes % 13.9 % (1.7-12.7); Neutrophils % 78.5 % (38.7-73.9); Platelet Count 167 T/CUMM (130-400); Red Blood Count 2.82 MC/CUMM (3.8-5.5); Red Cell Distribution Width 20.8 % (9.3-17.3); White Blood Count 12.1 T/CUMM (4-12)
[2022-10-04 06:14] LABS: Calcium 8.2 MG/DL (8.5-10.1); Osmolality,Calculated 282.5 MOS/KG (273-304); Potassium 3.5 MMOL/L (3.5-5.1)
[2022-10-04] MEDS: PANTOPRAZOLE 40 MG VIAL IV SCH (10:27)
[2022-10-04] MEDS: DOCUSATE SODIUM 100 MG CAPSULE PO SCH ×2 (10:27→20:12)
[2022-10-04] MEDS: amLODIPine 10 MG TABLET PO SCH (10:27)
[2022-10-04] MEDS: TIMOLOL 0.5% OPH SOLN 5 ML BOTTLE LEFT EYE SCH ×2 (10:28→20:11)
[2022-10-04] MEDS: BRIMONIDINE 0.2% OPH SOLN 5 ML BOTTLE LEFT EYE SCH ×2 (10:28→20:11)
[2022-10-04] MEDS ORDERED: SODIUM CHLORIDE 0.9% 1,000 ML IV PRN ×2 (11:22→11:49)
[2022-10-04] MEDS ORDERED: FUROSEMIDE 20 MG/2 ML VIAL IV ONE (11:24)
[2022-10-04] MEDS: ISOSORBIDE MONONITRATE 60 MG TABLET PO SCH (13:00)
[2022-10-04] MEDS: carvediloL 25 MG TABLET PO SCH (13:00)
[2022-10-04] MEDS: cloNIDine 0.1 MG TABLET PO SCH (20:11)
[2022-10-04] MEDS: ATORVASTATIN 40 MG TABLET PO SCH (20:12)
[2022-10-04] MEDS: LATANOPROST 0.005% OPH SOLN 2.5 ML BOTTLE LEFT EYE SCH (20:15)
[2022-10-04 21:44] LABS: Hematocrit 27.8 VOL% (42.0-52.0)
[2022-10-04 21:48] LABS: Hemoglobin 8.9 GM/DL (14.0-18.0)
[2022-10-05] MEDS: SODIUM CHLORIDE 0.9% 1,000 ML IV SCH ×3 (04:32→20:15)
[2022-10-05 05:24] LABS: Basophils # 0.1 10*3/uL (0.0-0.2); Basophils % 0.7 % (0.0-0.8); Eosinophils # 0.3 10*3/uL (0.0-0.87); Eosinophils % 3.6 % (0.00-10.9); Hematocrit 27.5 VOL% (42.0-52.0); Hemoglobin 8.6 GM/DL (14.0-18.0); Immature Granulocytes % 0.4 %; Immature Granulocytes Absolute 0.04 #; Lymphocytes # 0.8 10*3/uL (1.4-4.0); Lymphocytes % 8.2 % (21.2-54.2); Mean Corpuscular HGB Conc 31.3 GM/DL (32-36); Mean Corpuscular Volume 79.5 FL (87-102); Monocytes # 1.3 10*3/uL (0.11-0.8); Monocytes % 14.2 % (1.7-12.7); NRBC # 0.02 10*3/uL; Neutrophils % 72.9 % (38.7-73.9); Platelet Count 148 T/CUMM (130-400); Red Blood Count 3.46 MC/CUMM (3.8-5.5); Red Cell Distribution Width 19.9 % (9.3-17.3); White Blood Count 9.46 T/CUMM (4-12)
[2022-10-05 05:59] LABS: Calcium 8.2 MG/DL (8.5-10.1); Osmolality,Calculated 279.4 MOS/KG (273-304); Potassium 3.6 MMOL/L (3.5-5.1)
[2022-10-05] MEDS: carvediloL 25 MG TABLET PO SCH (09:07)
[2022-10-05] MEDS: PANTOPRAZOLE 40 MG VIAL IV SCH (09:07)
[2022-10-05] MEDS: amLODIPine 10 MG TABLET PO SCH (09:07)
[2022-10-05] MEDS: cloNIDine 0.1 MG TABLET PO SCH ×2 (09:07→20:12)
[2022-10-05] MEDS: DOCUSATE SODIUM 100 MG CAPSULE PO SCH ×2 (09:07→20:12)
[2022-10-05] MEDS: ISOSORBIDE MONONITRATE 60 MG TABLET PO SCH (09:07)
[2022-10-05] MEDS: TIMOLOL 0.5% OPH SOLN 5 ML BOTTLE LEFT EYE SCH ×2 (09:09→20:12)
[2022-10-05] MEDS: BRIMONIDINE 0.2% OPH SOLN 5 ML BOTTLE LEFT EYE SCH ×2 (09:09→20:11)
[2022-10-05] MEDS: ATORVASTATIN 40 MG TABLET PO SCH (20:12)
[2022-10-05] MEDS: LATANOPROST 0.005% OPH SOLN 2.5 ML BOTTLE LEFT EYE SCH (20:15)
[2022-10-06] MEDS: SODIUM CHLORIDE 0.9% 1,000 ML IV SCH ×3 (03:13→12:27)
[2022-10-06 05:16] LABS: Basophils # 0.1 10*3/uL (0.0-0.2); Basophils % 0.7 % (0.0-0.8); Eosinophils # 0.3 10*3/uL (0.0-0.87); Eosinophils % 3.9 % (0.00-10.9); Hematocrit 26.8 VOL% (42.0-52.0); Hemoglobin 8.4 GM/DL (14.0-18.0); Immature Granulocytes % 0.3 %; Immature Granulocytes Absolute 0.03 #; Lymphocytes % 11.6 % (21.2-54.2); Mean Corpuscular HGB Conc 31.3 GM/DL (32-36); Mean Corpuscular Volume 80.5 FL (87-102); Mean Platelet Volume 10.5 FL (9.6-12.0); Monocytes # 1.4 10*3/uL (0.11-0.8); Monocytes % 15.4 % (1.7-12.7); NRBC # 0.02 10*3/uL; Neutrophils % 68.1 % (38.7-73.9); Platelet Count 170 T/CUMM (130-400); Red Blood Count 3.33 MC/CUMM (3.8-5.5); Red Cell Distribution Width 20.2 % (9.3-17.3); White Blood Count 8.82 T/CUMM (4-12)
[2022-10-06 06:02] LABS: Calcium 8.8 MG/DL (8.5-10.1); Osmolality,Calculated 279.4 MOS/KG (273-304); Potassium 3.5 MMOL/L (3.5-5.1)
[2022-10-06] MEDS: carvediloL 25 MG TABLET PO SCH (08:48)
[2022-10-06] MEDS: DOCUSATE SODIUM 100 MG CAPSULE PO SCH ×2 (08:48→21:15)
[2022-10-06] MEDS: ISOSORBIDE MONONITRATE 60 MG TABLET PO SCH (08:49)
[2022-10-06] MEDS: amLODIPine 10 MG TABLET PO SCH (08:49)
[2022-10-06] MEDS: cloNIDine 0.1 MG TABLET PO SCH ×2 (08:50→21:14)
[2022-10-06] MEDS: TIMOLOL 0.5% OPH SOLN 5 ML BOTTLE LEFT EYE SCH ×2 (08:51→21:14)
[2022-10-06] MEDS: BRIMONIDINE 0.2% OPH SOLN 5 ML BOTTLE LEFT EYE SCH ×2 (08:51→21:14)
[2022-10-06] MEDS: PANTOPRAZOLE 40 MG VIAL IV SCH (08:52)
[2022-10-06] MEDS: LATANOPROST 0.005% OPH SOLN 2.5 ML BOTTLE LEFT EYE SCH (21:14)
[2022-10-06] MEDS: ATORVASTATIN 40 MG TABLET PO SCH (21:15)
[2022-10-07 04:57] LABS: Basophils # 0.1 10*3/uL (0.0-0.2); Basophils % 0.7 % (0.0-0.8); Eosinophils # 0.4 10*3/uL (0.0-0.87); Eosinophils % 4.4 % (0.00-10.9); Hematocrit 28.7 VOL% (42.0-52.0); Hemoglobin 8.8 GM/DL (14.0-18.0); Immature Granulocytes % 0.3 %; Immature Granulocytes Absolute 0.03 #; Lymphocytes # 0.9 10*3/uL (1.4-4.0); Lymphocytes % 10.2 % (21.2-54.2); Mean Corpuscular HGB Conc 30.7 GM/DL (32-36); Mean Corpuscular Volume 80.4 FL (87-102); Mean Platelet Volume 10.5 FL (9.6-12.0); Monocytes # 1.3 10*3/uL (0.11-0.8); Monocytes % 14.3 % (1.7-12.7); NRBC # 0.02 10*3/uL; Neutrophils % 70.1 % (38.7-73.9); Platelet Count 198 T/CUMM (130-400); Red Blood Count 3.57 MC/CUMM (3.8-5.5); Red Cell Distribution Width 20.2 % (9.3-17.3)
[2022-10-07 05:17] LABS: Calcium 8.9 MG/DL (8.5-10.1); Osmolality,Calculated 277.5 MOS/KG (273-304); Potassium 3.6 MMOL/L (3.5-5.1)
[2022-10-07] MEDS: cloNIDine 0.1 MG TABLET PO SCH (09:12)
[2022-10-07] MEDS: carvediloL 25 MG TABLET PO SCH (09:12)
[2022-10-07] MEDS: amLODIPine 10 MG TABLET PO SCH (09:13)
[2022-10-07] MEDS: ISOSORBIDE MONONITRATE 60 MG TABLET PO SCH (09:13)
[2022-10-07] MEDS: DOCUSATE SODIUM 100 MG CAPSULE PO SCH (09:14)
[2022-10-07] MEDS: PANTOPRAZOLE 40 MG VIAL IV SCH (09:15)
[2022-10-07] MEDS: TIMOLOL 0.5% OPH SOLN 5 ML BOTTLE LEFT EYE SCH (09:15)
[2022-10-07] MEDS: BRIMONIDINE 0.2% OPH SOLN 5 ML BOTTLE LEFT EYE SCH (09:15)
[2022-10-07 11:44] VITALS: BP 159/77
== END 2022-10-07 14:12 | disposition home health service (06) | DRG 810 ==
LOC: N.ED 09:13 → N.TELES 11:47
PROVIDERS: ADMIT Family Medicine; ATTEND Family Medicine